=== PATIENT | male | born 1950 | race Caucasian/White ===

== ENCOUNTER 2020-07-20 10:15 | Inpatient (IN) | payer MEDICARE, SELFPAY ==
[2020-07-20] VITALS (22 sets, daily range): BP systolic 130–154; BP diastolic 60–69; PULSE 76–90; RESP 14–40; TEMP 37.3–39.6; O2SAT 90–98; BMI 30.8; BMI 31.1
--- NOTE | 2020-07-20 10:25 | DI.RAD.S_ITS ---
PROCEDURE: XR CHEST 1V INDICATIONS: flu-like symptoms TECHNIQUE: One view of the chest was acquired. COMPARISON: None. FINDINGS: Surgical changes and devices: None. Lungs and pleura: An incomplete inspiratory result is noted, causing a crowded appearance to the lung markings. No focal infiltrates are seen. Generalized interstitial prominence is seen No pneumothorax or significant pleural effusions are seen. Mediastinum: Mediastinal contours appear normal. Heart size is moderately enlarged. Bones and chest wall: No suspicious bony lesions. Age-appropriate bony degenerative changes are seen. Overlying soft tissues appear unremarkable. IMPRESSION: Cardiomegaly and interstitial prominence. Please correlate with patient presentation, physical examination findings, and laboratory values for congestive heart failure. No focal infiltrates are detected. If clinically appropriate, a short-term followup chest series (with PA and lateral views) performed in deep inspiration is suggested for further evaluation. Dictated by: Rodrigo Acosta M.D. on 07/20/2020 at 10:06 Approved by: Rodrigo Acosta M.D. on 07/20/2020 at 10:07
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
[2020-07-20] MEDS: SODIUM CHLORIDE 0.9% 1,000 ML 125 ML IV (10:33)
[2020-07-20] MEDS: ACETAMINOPHEN 325 MG TABLET 975 MG PO (10:34)
[2020-07-20 10:43] LABS: Add Manual Diff / Slide Review NO; Basophils Absolute Auto 0 /uL (0-100); Basophils Percent Auto 0.2 % (0-2); Eosinophils Absolute Auto 0 /uL (0-450); Hematocrit 42.2 % (41-53); Hemoglobin 14.7 g/dL (13.5-17.5); Lymphocytes Absolute Auto 1400 /uL (1100-4500); Lymphocytes Percent Auto 8.8 % (25-40); Mean Corpuscular HGB Conc 34.9 % (30-36); Mean Corpuscular Hemoglobin 30.7 PG (26-34); Mean Corpuscular Volume 87.9 fL (80-100); Monocytes Absolute Auto 2700 /uL (0-900); Monocytes Percent Auto 16.8 % (3-14); Neutrophils Absolute Auto 11900 /uL (1500-7000); Neutrophils Percent Auto 74.2 % (50-75); Platelet Count 208 X10^3/uL (150-400); Red Cell Distribution Width 13.5 % (11.6-14.8); White Blood Cell Count 16.1 X10^3/uL (4.5-11.0)
[2020-07-20 11:02] LABS: D Dimer 315 ng/mL (<230)
[2020-07-20 11:05] LABS: COVID19 -Nasal RAPID Negative (Negative)
[2020-07-20 11:06] LABS: Lactate (Lactic Acid) 3.2 mmol/L (0.7-2.1)
--- NOTE | 2020-07-20 11:06 | PC.NURSE ---
patient daughter called, Gilda [phone], to give some info, they are still on a boat and trying to get to [facility] to drive in. Patient has been complaining of a headache for a week, on friday he got wet in the rain and had shivers that night, patient hasn't eaten much, blood glucose has been elevated in the 200's, patient this am was found on the floor of they boat and seemed very confused.
[2020-07-20 11:07] LABS: Alanine Aminotransferase 79 IU/L (<50); Albumin 3.8 g/dL (3.5-5.0); Albumin Globulin Ratio 1.7 (1.0-2.8); Alkaline Phosphatase 62 U/L (38-126); Aspartate Aminotransferase 161 IU/L (17-59); BUN Creatinine Ratio 29.9 (6-22); Bilirubin Total 1.2 mg/dL (0.2-1.3); Blood Urea Nitrogen 26 mg/dL (9-20); C-Reactive Protein Quant 0.7 mg/dL (<1.0); Carbon Dioxide 27 mmol/L (22-32); Chloride 91 mmol/L (98-107); Estimated Glomerular Filt Rate > 60.0 mL/min (>60); Globulin 2.3 g/dL (1.7-4.1); Glucose 120 mg/dL (80-110); Lactate Dehydrogenase 872 U/L (313-618); Potassium 3.3 mmol/L (3.4-5.1); Sodium 126 mmol/L (137-145); Total Protein 6.1 g/dL (6.3-8.2)
[2020-07-20 11:08] LABS: Influenza A - CEPHEID Flu A NEGATIVE (NEGATIVE); Influenza B - CEPHEID Flu B NEGATIVE (NEGATIVE)
[2020-07-20 11:18] LABS: NT-proBNP (BNP-Adult 18+) 428 pg/mL (<125); Troponin I 0.035 ng/mL (0.01-0.034)
[2020-07-20 11:34] LABS: Lipase 611 U/L (23-300)
[2020-07-20 11:41] LABS: Ferritin 426 ng/mL (18-464)
[2020-07-20 11:42] LABS: Procalcitonin < 0.05 ng/mL (<0.5)
[2020-07-20 11:48] LABS: Creatine Kinase 6823 U/L (55-170)
--- NOTE | 2020-07-20 12:06 | DI.CT.S_ITS ---
PROCEDURE: CT ABDOMEN PELVIS W CON INDICATIONS: fever weakness, no source TECHNIQUE: After the administration of intravenous contrast, 5 mm thick sections acquired from the diaphragm to the symphysis. 5 mm coronal and sagittal reformats were acquired. For radiation dose reduction, the following was used: automated exposure control, adjustment of mA and/or kV according to patient size. COMPARISON: None. FINDINGS: Image quality: Excellent. ABDOMEN: Lung bases: Dependent atelectasis is seen in the lung bases bilaterally. Heart size is normal. Solid organs: There is diffuse fatty infiltration the liver. Gallbladder is surgically absent. Biliary system is non dilated. Pancreas enhances normally. Spleen is normal in size and enhancement. No adrenal nodules. Multiple non-obstructing calculi are seen in the left kidney measuring 4-6 mm. An 8 mm nonobstructing calculus is seen inferior pole of the right kidney. There is no hydronephrosis. Peritoneum and bowel: Bowel loops demonstrate normal wall thickness and caliber. Normal appendix. No free fluid or air. Nodes and vessels: No retroperitoneal or mesenteric adenopathy by size criteria. Aorta and inferior vena cava are normal in size. Miscellaneous: No ventral hernias. PELVIS: Genitourinary: Multiple 4-5 mm calculi are seen in the dependent portion of the bladder. The prostate is enlarged. Miscellaneous: No inguinal hernias or adenopathy. Bones: No suspicious bony lesions. No vertebral body compression fractures. Mild degenerative changes are seen in the spine. IMPRESSION: 1. Multiple nonobstructing calculi are seen in both kidneys. There is no hydronephrosis. Additional calculi are seen in the dependent portion of the bladder. 2. Moderate prostatomegaly. 3. Diffuse hepatic steatosis. Dictated by: Yvon Delgado M.D. on 07/20/2020 at 12:17 Approved by: Yvon Delgado M.D. on 07/20/2020 at 12:24
[2020-07-20 12:09] LABS: CKMB % Relative Index 0.6 % (1.5-5.0); HEMOLYSIS 26 (0-50)
[2020-07-20 12:38] LABS: Reflexed Lactate in 2 Hours Y
[2020-07-20 14:00] LABS: Appearance Urine UA CLEAR; Bilirubin Urine UA NEGATIVE (NEGATIVE); Color Urine UA YELLOW; Glucose Urine UA NEGATIVE (Negative); Ketones Urine UA NEGATIVE (NEGATIVE); Leukocyte Esterase Urine UA NEGATIVE (NEGATIVE); Nitrite Urine UA NEGATIVE (Negative); Occult Blood Urine UA 3+ (Negative); Protein Urine UA 1+ (Negative); Urobilinogen Urine UA 0.2 E.U./dL (0.2); pH Urine UA 6.5 (4.5-8.0)
[2020-07-20 14:11] LABS: Bacteria Urine Few (2-10); Culture Indicated Urine Cult Not Indicated; RBC Urine 1-5/HPF (0-5/HPF); WBC Urine 0-1/HPF (0-5/HPF)
[2020-07-20] MEDS: KETOROLAC 60 MG/2 ML VIAL 15 MG IV (14:36)
[2020-07-20] MEDS: PIPERACILLIN-TAZO 3.375 GM/50 ML FROZ.PIGGY IV (14:37)
[2020-07-20 15:16] LABS: Lactate 2HR (Lactic Acid Rflx) 1.3 mmol/L (0.7-2.1)
[2020-07-20] MEDS: CEFTRIAXONE 2 GM/50 ML FROZ.PIGGY IV (15:45)
--- NOTE | 2020-07-20 15:45 | PC.NURSE ---
Pt was incontinent of bladder. Assisted with complete bed change. Pt is now in bed with rails up and a clean gown. Elevated HOB and call light within reach. No complaints at this time.
--- NOTE | 2020-07-20 16:08 | DI.RAD.S_ITS ---
PROCEDURE: FL GUIDED LUMBAR PUNCTURE LP INDICATIONS: fever headache COMPARISON: None. TECHNIQUE: The indications, alternatives, benefits, risks, and complications were explained to the patient. Written informed consent was obtained and placed in the chart. The patient was placed in a prone position on the fluoroscopy table, and a level was chosen for percutaneous access under fluoroscopic guidance. The site was prepped and draped in a sterile fashion. After local anaesthetic, a spinal needle was then used to enter the intrathecal space, with return of cerebrospinal fluid. After obtaining sufficient fluid, the needle was then withdrawn, and a bandage applied to the puncture site. FINDINGS: Puncture level: L3-L4 Needle: Spinal needle. Opening pressure: Not requested. CSF volume and description: 14 cc of clear CSF Medications: 1% lidocaine for anaesthesia. Complications: None. Laboratories: As ordered by referring clinician. IMPRESSION: Successful fluoroscopically guided lumbar puncture. Dictated by: Lopez Sofia M.D. on 07/20/2020 at 17:59 Approved by: Lopez Sofia M.D. on 07/20/2020 at 18:00
--- NOTE | 2020-07-20 17:48 | PC.NURSE ---
Pt to room 220 from E.R. via stretcher. Rouses to voice, but very somnulent. Periods of apnea with sleep and when awoken does admit to h/o of sleep apnea with cpap use. 02 3L nc saturation level 94% with sleep. Has glasses in possession. Tele placed and [employer]CR[employer]ISHER, Grace, informed. SCD's in place. Awaiting pt's spouse to arrive to address pt's medical history and admission assessment.
[2020-07-20 18:16] LABS: Glucose CSF 43 mg/dL (40-70); Total Protein CSF 76 mg/dL (12-60)
[2020-07-20 18:35] LABS: Appearance CSF Clear (Clear); CSF Tube Number 2; CSF Tube Volume 2.5 mL; Color CSF Colorless (Colorless); HOLD TUBE CSF YES; Mononuclear WBC CSF 90 %; Polynuclear WBC CSF 10 %; Red Blood Cell CSF 0 RBC /uL; White Blood Cell CSF 216 MONO/uL (0-5)
[2020-07-20 18:36] LABS: Appearance CSF Clear (Clear); CSF Tube Number 4; CSF Tube Volume 5.0 mL
[2020-07-20 18:37] LABS: Color CSF Colorless (Colorless); Mononuclear WBC CSF 92 %; Polynuclear WBC CSF 8 %; Red Blood Cell CSF 0 RBC /uL; White Blood Cell CSF 225 MONO/uL (0-5)
[2020-07-20 18:50] LABS: Hemoglobin A1C% w Est Avg Glu 7.1 % (4.0-6.0)
[2020-07-20 18:52] LABS: TSH w/ Reflex to FT4 0.07 uIU/mL (0.47-4.68)
[2020-07-20] MEDS: VANCOMYCIN 1,500 MG/300 ML FROZ.PIGGY 200 MG IV (19:02)
[2020-07-20 19:23] LABS: Free T4, Direct Thyroxine 1.37 ng/dL (0.78-2.19)
--- NOTE | 2020-07-20 20:03 | PC.NURSE ---
Addendum entered by Taylor Hodge R.N. 07/21/20 03:47: 0305 per , okay to let pt sleep until 299 for neuro check. pt able to state name, birthday, and town but thinks its 2015 and doesn't know rational for hospitalization. pt not assisting with repositioning. does move extremities freely and to command. strengths equal. denies pain. VSS. CBG <80, clear glucerna given and pt able to drink entire thing without difficulty. CPAP back on after assessment. Addendum entered by Taylor Hodge R.N. 07/21/20 01:21: 2200 neuro check oriented to all, looks to opposite side (this RN on pt's left side, pt looks to right) when answering questions. when this RN asks pt to look at her he turns his head to the appropriate direction. Pt has CPAP on and has hands grasped tightly around cording. 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 0000 neuro check pt seems tired, eyes are red and pt's reported pt has not slept since 299. Arouses easily but doesn't respond as much verbally. repositioned to right side and was able to bend knee up with turning but otherwise did not assist with positional change. Pt denies any differences in sensation between bilateral arms/legs. Encouraged pt to sleep. CBG improved, temp elevated and IBU given (reference EMAR) pt able to swallow pill/water without difficulty. Original Note: neuor check 1999 pt alert and oriented to self, place, setting, situation, date. pt restless and picks at IV site and continue to try to get OOB to void even though has patent burger in place. Pt's Itzel at bedside and attempts to reorient pt to equipment and pt is agreeable and than fidgety again. Able to move all extremities freely but does not have the strength to sit up independent. Is able to follow commands. Verbal responses continue to be delayed sometimes requiring to repeat the question.
--- NOTE | 2020-07-20 20:47 | PM.HP.1 ---
History of Present Illness History of Present Illness Date Patient Seen: 07/20/20 Time Patient Seen: 20:21 Chief complaint: Decreased loc 3 days,fever,no cough Narrative: Mr. Ottoniel Lewis is a 70-year-old male patient with a past medical history significant for insulin-dependent diabetes with neuropathy, hypertension, history of kidney stones and BPH presents to the ER with altered mental status, headache and fever. 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 The patient's symptoms began 1 week ago after being caught and rain storm for several hours after which the patient began experiencing shaking chills. The patient complained of headache and is otherwise typically stoic. He has had associated symptoms of increasing confusion which is describes activities like scrolling a cell phone screen but without a cell. Patient has had associated symptoms of body aches weakness, feeling tired having slept most of the day yesterday. Patient is diabetic and has had poor appetite and has been taking to see above but did not receive his dose today having had a low blood sugar in the 60s that was treated with oral nutrition. Patient has had no prior headaches or neurologic symptoms or seizures, no history trauma or injury, no complaints photo or phonophobia. He has not complained of neck or back pain but has had nausea without vomiting denies complaints of sinus or nasal congestion or sore throat. He has not complained of chest pain or palpitations, shortness of breath cough or wheezing. Denies complaints of abdominal pain, heartburn, diarrhea or constipation. He takes Ex[employer] health for enlarged prostate and denies difficulty urinating. Upon arrival to the ER the patient has a temperature 103.3, heart rate of 85, blood pressure 137/63, respirations 22 saturating 95% on room air. A CT of the head is obtained which finds no intercranial pathology. A chest x-rays obtained finding cardiomyopathy with interstitial prominence. CT of the abdomen and pelvis finds hepatic steatosis, nonobstructing calculi of both kidneys without hydronephrosis, prostatomegaly. Twelve lead EKG is obtained finding a sinus rhythm with ventricular rate of 86, first-degree AV block with right bundle branch block, Q-waves in lead 2 and AVF indicative prior inferior DC, On laboratory analysis the patient has an elevated white blood cell count at 16.1 with 2700 monocytes, 8.8% lymphs and 11,900 neutrophils, hemoglobin of 14.7, hematocrit 42.2 and platelets 208. He is found to be hyponatremic 126 and hypokalemic at 3.3. His BUN is 26 and creatinine 0.87. His nonfasting glucose is 120 with an A1c 7.1.. His total bilirubin is 1.2 with an AST of 161 and ALT is 79. His lipase is 60 11 and LDH is 872. He has a D-dimer of 215. His initial lactic acid is 3.2 following fluids he has improved to 1.3. His procalcitonin is less than 0.05. His troponin is 0.035, total CK is 6823 with an MB of 38.3 for an index of 0.6, BNP is 428. TSH is 0.07 with free T4 of 1.37. An LP is obtained through interventional radiology: Opening pressures not provided, CSF is clear and colorless, wbc's are 216 with monos 90% and 10% polys, glucose is normal at 43 and total protein is elevated at 76. 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 In the ER the patient received Zosyn 3.375 g and Rocephin 2 g. Has received Tylenol 975 mg well as Toradol 15 mg. Sepsis bolus was ordered then canceled. The patient is admitted to the hospitalist service for altered mental status and possible bacterial meningitis. Patient History Medical History BPH (benign prostatic hyperplasia) (Acute) Diabetes (Acute) Hypertension (Acute) Neuropathy (Acute) Surgical History History of Achilles tendon repair (Acute) History of cholecystectomy (Acute) History of lithotripsy (Acute) Family & Social History Family History Father Cancer Mother Diabetes mellitus Kidney disease Sister Diabetes mellitus Social History: household members spouse Prior Living Arrangements House Safety & Behavioral: Feels Safe in Current Yes Environment Been Physically Hurt or No Threatened By a Person Suicidal Ideation Description None Suicide Plan Description No Plan Tobacco & Substance use: Smoking Status Never smoker alcohol intake former Substance Use Type does not use Comment: Patient lives in [facility], in the [facility] visiting staying on a boat. Meds Home Medications and Allergies Home Medications Medication Instructions Recorded Confirmed Type glimepiride 2 mg PO QAM 07/20/20 07/20/20 History glimepiride 4 mg PO BEDTIME 07/20/20 07/20/20 History insulin degludec [Tresiba 90 unit SUBCUT BEDTIME 07/20/20 07/20/20 History FlexTouch U-200] levothyroxine 137 mcg PO DAILY 07/20/20 07/20/20 History losartan 50 mg PO BID 07/20/20 07/20/20 History Allergies Allergy/AdvReac Type Severity Reaction Status Date / Time ciprofloxacin Allergy Verified 07/20/20 11:08 Review of Systems Review of Systems ROS: Yes All systems reviewed with the patient and are negative except as otherwise documented Exam Vital Signs (past 8 hours): - 07/20/20 12:58 07/20/20 13:00 07/20/20 13:30 Temperature 101.3 F H Pulse Rate 77 Respiratory Rate 18 Blood Pressure 145/66 H 130/60 Pulse Oximetry 97 07/20/20 14:00 07/20/20 14:30 07/20/20 15:00 Temperature Pulse Rate 82 80 Respiratory Rate 18 24 Blood Pressure 136/62 147/67 H 143/63 H Pulse Oximetry 94 92 07/20/20 15:30 07/20/20 15:40 07/20/20 17:25 Temperature 100.2 F H 99.2 F Pulse Rate 82 76 Respiratory Rate 34 H 18 Blood Pressure 136/66 Pulse Oximetry 95 90 L Oxygen Delivery Method Nasal Cannula,High Flow Nasal Cannula Oxygen Flow Rate 0 Narrative Exam Narrative: GENERAL APPEARANCE: well developed, obese male with ill-appearing HEENT: Normocephalic, PERRLA, conjunctiva injection, EOMs intact with bilateral slow beat nystagmus, no sinus tenderness to percussion, no rhinorrhea, mucous membranes are dry and pink without lesions or exudate. NECK/THYROID: neck supple, no JVD, no carotid bruit, no thyromegaly, trachea midline. LYMPH NODES: no cervical or supraclavicular lymphadenopathy. SKIN: flushed, warm and dry, no visible lesions, rashes, ulcerations or petechiae. HEART: regular rate and rhythm, S1-S2, no murmur, no rubs or gallops, brisk capillary refill, no edema LUNGS: clear to auscultation bilaterally, no coarseness crackles or wheezing, no cough present CHEST: Symmetrical movement, no accessory muscle use, shallow tidal volume. ABDOMEN: Firm, round, dull to percussion, no abdominal tenderness, no guarding or peritoneal signs, no organomegaly, no flank or suprapubic tenderness, active bowel tones. BACK: Normal curvature, nontender to palpation, no CVA tenderness on percussion EXTREMITIES: moves all extremities, strength is 5/5 and symmetrical, no deformities or joint effusions. NEUROLOGIC: Alert oriented to person, place, month and recent holiday but states that is 2011, no facial asymmetry symmetrical movement, akathisia like movements of hands, decreased sensation distal to the knees, hearing grossly normal to speech. PSYCH: Poor eye contact, primary left gaze, global inattention impaired short-term memory, follows commands. Objective Labs Result Diagrams: 07/20/20 10:30 07/20/20 10:30 Labs: Laboratory Results - last 24 hr 07/20/20 07/20/20 07/20/20 10:30 10:30 10:30 WBC 16.1 H RBC 4.80 Hgb 14.7 Hct 42.2 MCV 87.9 MCH 30.7 MCHC 34.9 RDW 13.5 Plt Count 208 Neut % (Auto) 74.2 Lymph % (Auto) 8.8 L [place] % (Auto) 16.8 H Eos % (Auto) 0.0 L Baso % (Auto) 0.2 Neut # (Auto) 42401 H Lymph # (Auto) 1400 [place] # (Auto) 2700 H Eos # (Auto) 0 Baso # (Auto) 0 D-Dimer 315 H Sodium Potassium Chloride Carbon Dioxide BUN Creatinine Estimated GFR BUN/Creatinine Ratio Glucose Hemoglobin A1c Lactate Calcium Magnesium Ferritin Total Bilirubin AST ALT Alkaline Phosphatase Lactate Dehydrogenase Total Creatine Kinase CK-MB (CK-2) CK-MB (CK-2) Rel Index Troponin I C-Reactive Protein NT-Pro-B Natriuret Pep Total Protein Albumin Globulin Albumin/Globulin Ratio Lipase Procalcitonin < 0.05 TSH Free T4 Urine Color Urine Appearance Urine pH Ur Specific [place] Urine Protein Urine Glucose (UA) Urine Ketones Urine Occult Blood Urine Nitrate Urine Bilirubin Urine Urobilinogen Ur Leukocyte Esterase Urine RBC Urine WBC Urine Bacteria Ur Culture Indicated? CSF Tube Number CSF Volume CSF Appearance CSF Color CSF WBC CSF RBC CSF Mononuclear WBCs CSF Polynuclear WBCs CSF Glucose CSF Total Protein COVID-19 PCR Influenza A (RT-PCR) Influenza B (RT-PCR) 07/20/20 07/20/20 07/20/20 10:30 10:30 10:30 WBC RBC Hgb Hct MCV MCH MCHC RDW Plt Count Neut % (Auto) Lymph % (Auto) [place] % (Auto) Eos % (Auto) Baso % (Auto) Neut # (Auto) Lymph # (Auto) [place] # (Auto) Eos # (Auto) Baso # (Auto) D-Dimer Sodium 126 L Potassium 3.3 L Chloride 91 L Carbon Dioxide 27 BUN 26 H Creatinine 0.87 Estimated GFR > 60.0 BUN/Creatinine Ratio 29.9 H Glucose 120 H Hemoglobin A1c Lactate 3.2 H Calcium 8.0 L Magnesium Ferritin 426 Total Bilirubin 1.2 AST 161 H ALT 79 H Alkaline Phosphatase 62 Lactate Dehydrogenase 872 H Total Creatine Kinase 6823 H CK-MB (CK-2) 38.30 H CK-MB (CK-2) Rel Index 0.6 L Troponin I 0.035 H C-Reactive Protein 0.7 NT-Pro-B Natriuret Pep 428 H Total Protein 6.1 L Albumin 3.8 Globulin 2.3 Albumin/Globulin Ratio 1.7 Lipase 611 H Procalcitonin TSH Free T4 Urine Color Urine Appearance Urine pH Ur Specific [place] Urine Protein Urine Glucose (UA) Urine Ketones Urine Occult Blood Urine Nitrate Urine Bilirubin Urine Urobilinogen Ur Leukocyte Esterase Urine RBC Urine WBC Urine Bacteria Ur Culture Indicated? CSF Tube Number CSF Volume CSF Appearance CSF Color CSF WBC CSF RBC CSF Mononuclear WBCs CSF Polynuclear WBCs CSF Glucose CSF Total Protein COVID-19 PCR Influenza A (RT-PCR) Influenza B (RT-PCR) 07/20/20 07/20/20 07/20/20 10:30 10:30 10:30 WBC RBC Hgb Hct MCV MCH MCHC RDW Plt Count Neut % (Auto) Lymph % (Auto) [place] % (Auto) Eos % (Auto) Baso % (Auto) Neut # (Auto) Lymph # (Auto) [place] # (Auto) Eos # (Auto) Baso # (Auto) D-Dimer Sodium Potassium Chloride Carbon Dioxide BUN Creatinine Estimated GFR BUN/Creatinine Ratio Glucose Hemoglobin A1c 7.1 H Lactate Calcium Magnesium 2.0 Ferritin Total Bilirubin AST ALT Alkaline Phosphatase Lactate Dehydrogenase Total Creatine Kinase CK-MB (CK-2) CK-MB (CK-2) Rel Index Troponin I C-Reactive Protein NT-Pro-B Natriuret Pep Total Protein Albumin Globulin Albumin/Globulin Ratio Lipase Procalcitonin TSH 0.07 L Free T4 1.37 Urine Color Urine Appearance Urine pH Ur Specific [place] Urine Protein Urine Glucose (UA) Urine Ketones Urine Occult Blood Urine Nitrate Urine Bilirubin Urine Urobilinogen Ur Leukocyte Esterase Urine RBC Urine WBC Urine Bacteria Ur Culture Indicated? CSF Tube Number CSF Volume CSF Appearance CSF Color CSF WBC CSF RBC CSF Mononuclear WBCs CSF Polynuclear WBCs CSF Glucose CSF Total Protein COVID-19 PCR Influenza A (RT-PCR) Influenza B (RT-PCR) 07/20/20 07/20/20 07/20/20 10:40 10:40 13:20 WBC RBC Hgb Hct MCV MCH MCHC RDW Plt Count Neut % (Auto) Lymph % (Auto) [place] % (Auto) Eos % (Auto) Baso % (Auto) Neut # (Auto) Lymph # (Auto) [place] # (Auto) Eos # (Auto) Baso # (Auto) D-Dimer Sodium Potassium Chloride Carbon Dioxide BUN Creatinine Estimated GFR BUN/Creatinine Ratio Glucose Hemoglobin A1c Lactate Calcium Magnesium Ferritin Total Bilirubin AST ALT Alkaline Phosphatase Lactate Dehydrogenase Total Creatine Kinase CK-MB (CK-2) CK-MB (CK-2) Rel Index Troponin I C-Reactive Protein NT-Pro-B Natriuret Pep Total Protein Albumin Globulin Albumin/Globulin Ratio Lipase Procalcitonin TSH Free T4 Urine Color Yellow Urine Appearance Clear Urine pH 6.5 Ur Specific [place] 1.010 Urine Protein 1+ H Urine Glucose (UA) Negative Urine Ketones Negative Urine Occult Blood 3+ H Urine Nitrate Negative Urine Bilirubin Negative Urine Urobilinogen 0.2 Ur Leukocyte Esterase Negative Urine RBC 1-5/hpf Urine WBC 0-1/hpf Urine Bacteria Few (2-10) H Ur Culture Indicated? Cult not indicated CSF Tube Number CSF Volume CSF Appearance CSF Color CSF WBC CSF RBC CSF Mononuclear WBCs CSF Polynuclear WBCs CSF Glucose CSF Total Protein COVID-19 PCR Negative Influenza A (RT-PCR) Flu a negative Influenza B (RT-PCR) Flu b negative 07/20/20 07/20/20 07/20/20 15:00 16:01 17:37 WBC RBC Hgb Hct MCV MCH MCHC RDW Plt Count Neut % (Auto) Lymph % (Auto) [place] % (Auto) Eos % (Auto) Baso % (Auto) Neut # (Auto) Lymph # (Auto) [place] # (Auto) Eos # (Auto) Baso # (Auto) D-Dimer Sodium Potassium Chloride Carbon Dioxide BUN Creatinine Estimated GFR BUN/Creatinine Ratio Glucose Hemoglobin A1c Lactate 1.3 Calcium Magnesium Ferritin Total Bilirubin AST ALT Alkaline Phosphatase Lactate Dehydrogenase Total Creatine Kinase CK-MB (CK-2) CK-MB (CK-2) Rel Index Troponin I C-Reactive Protein NT-Pro-B Natriuret Pep Total Protein Albumin Globulin Albumin/Globulin Ratio Lipase Procalcitonin TSH Free T4 Urine Color Urine Appearance Urine pH Ur Specific [place] Urine Protein Urine Glucose (UA) Urine Ketones Urine Occult Blood Urine Nitrate Urine Bilirubin Urine Urobilinogen Ur Leukocyte Esterase Urine RBC Urine WBC Urine Bacteria Ur Culture Indicated? CSF Tube Number 4 CSF Volume 5.0 ml CSF Appearance Clear CSF Color Colorless CSF WBC 225 H CSF RBC 0 CSF Mononuclear WBCs 92 CSF Polynuclear WBCs 8 CSF Glucose 43 CSF Total Protein 76 H COVID-19 PCR Influenza A (RT-PCR) Influenza B (RT-PCR) 07/20/20 17:37 WBC RBC Hgb Hct MCV MCH MCHC RDW Plt Count Neut % (Auto) Lymph % (Auto) [place] % (Auto) Eos % (Auto) Baso % (Auto) Neut # (Auto) Lymph # (Auto) [place] # (Auto) Eos # (Auto) Baso # (Auto) D-Dimer Sodium Potassium Chloride Carbon Dioxide BUN Creatinine Estimated GFR BUN/Creatinine Ratio Glucose Hemoglobin A1c Lactate Calcium Magnesium Ferritin Total Bilirubin AST ALT Alkaline Phosphatase Lactate Dehydrogenase Total Creatine Kinase CK-MB (CK-2) CK-MB (CK-2) Rel Index Troponin I C-Reactive Protein NT-Pro-B Natriuret Pep Total Protein Albumin Globulin Albumin/Globulin Ratio Lipase Procalcitonin TSH Free T4 Urine Color Urine Appearance Urine pH Ur Specific [place] Urine Protein Urine Glucose (UA) Urine Ketones Urine Occult Blood Urine Nitrate Urine Bilirubin Urine Urobilinogen Ur Leukocyte Esterase Urine RBC Urine WBC Urine Bacteria Ur Culture Indicated? CSF Tube Number 2 CSF Volume 2.5 ml CSF Appearance Clear CSF Color Colorless CSF WBC 216 H CSF RBC 0 CSF Mononuclear WBCs 90 CSF Polynuclear WBCs 10 CSF Glucose CSF Total Protein COVID-19 PCR Influenza A (RT-PCR) Influenza B (RT-PCR) Assessment & Plan Assessment & Plan narrative: This is a 70-year-old male patient with a history of diabetes, hypertension and BPH who has had progressive altered mental status with headache for 1 week with progressive body aches weakness and chills, fatigue with poor appetite. 1. Altered mental status, probable meningitis, acute, present on admission, active. -the patient has had progressive symptoms of headache, increasing fevers and confusion, intermittent chills, nausea without vomiting, weakness fatigue and poor appetite. -source of altered mental status likely multifactorial, most prominently acute meningitis, hyponatremia but also ruling out other infectious processes. -patient has an elevated today PVCs at 16.1 with increased monocytes, decreased lymphs. Procalcitonin is negative at less than 0.05, elevated D-dimer at 315, elevated LDH at 800 72, ferritin is normal at 426. -CT the head is negative for acute intracranial pathology, chest x-ray identifies interstitial prominence but no infiltrates, urinalysis appears non infected, covert screen is negative. -lumbar punctures obtained with findings of clear colorless CSF with elevated white blood cells with 216 mononuclear (90%) and polynuclear (10%), elevated protein at 76, normal glucose of 43, most consistent with viral etiology, CSF PCR pending. -ordered repeat covered screening as well as respiratory PCR. -patient receives Zosyn 3.375 g in the ER which is discontinued, will continue Rocephin 2 g daily started in the ER. Will add vancomycin per pharmacy dosing pending PCR culture results. 2. Borderline troponin with elevated creatinine kinase, present on admission, active. --patient did take a fall on the boat which was heard by the patient's and patient was found on the cabin floor. -no prolonged down time with patient is found to have an elevated CK of 6823, CK-MB 38.3, index is 0.6%. -troponin is borderline at 0.035 in the setting of normal renal function. Chest x-ray of poor quality shows cardiomegaly with interstitial prominence, pro BNP is 428. -patient received IV fluid bolus in the emergency department, will continue normal saline at 100 cc/hour. -will recheck cardiac panel in the morning. 3. Hypokalemia, acute, present on admission, active. -admission labs find a potassium of 3.3. No evidence of acidosis. -ordered KCl rider 40 mEq now. -will recheck electrolytes in the morning. 4. Hyponatremia, acute, present on admission, active. -patient has sodium of 126 on admission labs. -the patient appears dehydrated has been cautiously rehydrated with normal saline 100 cc/hour due to questionable cardiac status. -or evaluates electrolytes in the morning. 5. Diabetes, insulin dependent, present on admission, active. -the patient takes Tresiba 90 units daily at night. His glucose on admission labs is 120. His A1c is 7.1. -patient experienced hypo glycemic episode yesterday with blood glucose down to the 60s for which is treated with oral nutrients on board the boat. -will hold Tresiba tonight, fingerstick glucose ACHS and at midnight, coverage with medium dose correctional insulin. -constant carbohydrate diet. 6. Hypertension, chronic, stable -blood pressure is 137/63 upon arrival. -will continue home medication of losartan 50 mg daily. 7. Benign prostatic hypertrophy, chronic, stable. -patient takes beta health for his prostate. He denies difficulty urinating though he has previously required catheter placement for obstruction. -patient was straight cath in the emergency department for urine sample required for workup. -urinalysis finds a specific gravity of 1.010 with a pH of 6.5, positive for protein blood and few bacteria negative for leukocyte esterase or nitrates. Urine culture is requested. -Patient became restless attempting to get out of bed due to need to void, bladder scan reveals 450 cc, Foote catheter placed. -ordered tamsulosin. VTE prophylaxis: Bilateral SCDs, heparin IV fluid: Normal saline 100 cc/hour. Diet: Constant carbohydrate heart healthy Code status: Patient states his desire to be DNR which is confirmed with the patient's at bedside whom he designates to be his surrogate decision maker. The patient is admitted to the hospital due to the severity of symptoms and need for ongoing evaluation and treatment. The patient is admitted as an inpatient with expected length of stay to be greater than 2 midnights. COVID-19 COVID-19 status: Negative Result date/Date tested (Pos, Neg/Pending): 07/20/20 Scores GCS Brodie coma scale eye opening: Spontaneous Brodie coma scale verbal response: Confused [place] coma scale motor response: Obey commands Brodie coma scale total score: 14 Quality VTE Deep Vein Thrombosis/Pulmonary Embolism Present on Admission: No
[2020-07-20] MEDS: ACYCLOVIR IV (20:51)
[2020-07-20] MEDS: WATER IV (20:51)
[2020-07-20] MEDS: DEXTROSE 5% IV (20:51)
[2020-07-20] MEDS: HEPARIN 5,000 UNIT/ML VIAL 5000 UNIT SUBCUT (20:56)
[2020-07-20] MEDS: ACETAMINOPHEN 325 MG TABLET 650 MG PO (21:05)
[2020-07-20 22:35] LABS: Cryptococcus neoformans/gattii Not Detected (Not Detect); Enterovirus Not Detected (Not Detect); Escherichia coli K1 Not Detected (Not Detect); Haemophilus influenzae Not Detected (Not Detect); Herpes simplex virus 1 Detected (Not Detect); Herpes simplex virus 2 Not Detected (Not Detect); Human herpesvirus 6 Not Detected (Not Detect); Listeria monocytogenes Not Detected (Not Detect); Neisseria meningitidis Not Detected (Not Detect); Streptococcus agalactiae Not Detected (Not Detect); Streptococcus pneumoniae Not Detected (Not Detect); Varicella Zoster Virus Not Detected (Not Detecte)
[2020-07-20 22:36] LABS: Human parechovirus Not Detected (Not Detect)
[2020-07-21] VITALS (25 sets, daily range): BP systolic 129–157; BP diastolic 68–87; PULSE 89–103; RESP 31–41; TEMP 36.4–39.6; O2SAT 94–97
[2020-07-21] MEDS: IBUPROFEN 600 MG TABLET PO (00:12)
[2020-07-21] MEDS: SODIUM CHLORIDE 0.9% 1,000 ML 100 ML IV ×2 (00:13→08:10)
[2020-07-21 00:34] LABS: COVID19 -Nasal RAPID Negative (Negative)
[2020-07-21 00:35] LABS: Bordetella pertussis Not Detected (Not Detect); Chlamydophila pneumoniae Not Detected (Not Detect); Coronavirus 229E Not Detected (Not Detect); Coronavirus HKU1 Not Detected (Not Detect); Coronavirus NL 63 Not Detected (Not Detect); Coronavirus OC43 Not Detected (Not Detect); Human Metapneumovirus Not Detected (Not Detect); Human Rhinovirus/Enterovirus Not Detected (Not Detect); Influenza A Not Detected (Not Detect); Influenza B Not Detected (Not Detect); Mycoplasma pneumoniae Not Detected (Not Detect); Parainfluenza Virus 1 Not Detected (Not Detect); Parainfluenza Virus 2 Not Detected (Not Detect); Parainfluenza Virus 3 Not Detected (Not Detect); Parainfluenza Virus 4 Not Detected (Not Detect); Respiratory Syncytial Virus Not Detected (Not Detect)
[2020-07-21 00:37] LABS: Adenovirus Not Detected (Not Detect)
[2020-07-21] MEDS: POTASSIUM CHLORIDE 40 MEQ in SODIUM CHLORIDE 0.9% 500 ML 130 ML IV (00:50)
[2020-07-21] MEDS: WATER IV ×3 (03:56→20:14)
[2020-07-21] MEDS: ACYCLOVIR IV ×3 (03:56→20:14)
[2020-07-21] MEDS: DEXTROSE 5% IV ×3 (03:56→20:14)
--- NOTE | 2020-07-21 04:18 | PC.NURSE ---
0300 assumed care of patient. Patient is resting in bed with eyes closed, breathing unlabored, CPAP on, 96%. Patient is arousable to voice and touch, oriented to self, in response to place patient said [place], speech is clear but slow. Patient becomes restless intermittently, picks at linen and tubing. IV infusing L wrist [id number]. IV R AC infusing Acyclovir @ 100ml/hr. Patient tolerating. Foote is below bladder, patent, draining clear, orange urine. Tele on. Patient's glasses are on tray table, SCD's on bilaterally, bed alarm on, droplet precautions maintained.
[2020-07-21] MEDS: CEFTRIAXONE 2 GM/50 ML FROZ.PIGGY IV (05:15)
[2020-07-21 05:31] LABS: Add Manual Diff / Slide Review NO; Basophils Absolute Auto 100 /uL (0-100); Basophils Percent Auto 0.8 % (0-2); Eosinophils Absolute Auto 0 /uL (0-450); Eosinophils Percent Auto 0.3 % (2-4); Hematocrit 40.2 % (41-53); Hemoglobin 14.1 g/dL (13.5-17.5); Lymphocytes Absolute Auto 1900 /uL (1100-4500); Lymphocytes Percent Auto 15.1 % (25-40); Mean Corpuscular HGB Conc 35.2 % (30-36); Mean Corpuscular Hemoglobin 30.9 PG (26-34); Mean Corpuscular Volume 87.8 fL (80-100); Monocytes Absolute Auto 2300 /uL (0-900); Monocytes Percent Auto 18.2 % (3-14); Neutrophils Absolute Auto 8200 /uL (1500-7000); Neutrophils Percent Auto 65.6 % (50-75); Platelet Count 168 X10^3/uL (150-400); Red Blood Cell Count 4.57 X10^6/uL (4.5-5.9); Red Cell Distribution Width 13.3 % (11.6-14.8); White Blood Cell Count 12.4 X10^3/uL (4.5-11.0)
[2020-07-21 05:43] LABS: BUN Creatinine Ratio 25.8 (6-22); Blood Urea Nitrogen 23 mg/dL (9-20); Calcium 7.4 mg/dL (8.4-10.2); Carbon Dioxide 25 mmol/L (22-32); Chloride 99 mmol/L (98-107); Estimated Glomerular Filt Rate > 60.0 mL/min (>60); Glucose 102 mg/dL (80-110); HEMOLYSIS 20 (0-50); Potassium 3.7 mmol/L (3.4-5.1); Sodium 129 mmol/L (137-145)
[2020-07-21 05:54] LABS: Troponin I 0.029 ng/mL (0.01-0.034)
[2020-07-21 05:56] LABS: Procalcitonin < 0.05 ng/mL (<0.5)
[2020-07-21 06:07] LABS: Creatine Kinase 5648 U/L (55-170)
[2020-07-21 06:15] LABS: CKMB % Relative Index 0.1 % (1.5-5.0); Creatine Kinase MB 5.74 ng/mL (<2.37)
[2020-07-21] MEDS: LEVOTHYROXINE 137 MCG TABLET PO (06:45)
[2020-07-21] MEDS: VANCOMYCIN 1,500 MG/300 ML FROZ.PIGGY 200 MG IV (06:48)
[2020-07-21] MEDS: DEXTROSE 50 % IN WATER 25 GM/50 ML SYRINGE IV (08:04)
--- NOTE | 2020-07-21 08:25 | PC.NURSE ---
Addendum entered by Layla Morrison R.N. 07/21/20 11:24: Patient placed on own cpap with 2L O2 bleed in. Sats 94-95%, oral temp 99.0 Addendum entered by Layla Morrison R.N. 07/21/20 10:49: Patient back from MRI, oral temp 103.2 tylenol suppository given. Sats on RA 90% placed on 2L sats 94-95% RR41. Addendum entered by Layla Morrison R.N. 07/21/20 10:04: Patients Itzel at the bedside, Dr Carrillo in to assess patient. Patient taken down for MRI. Addendum entered by Layla Morrison R.N. 07/21/20 09:17: CBG 83, ate about 75% of breakfast with assist, patient pocketing food, Dr Carrillo aware orders received. Changed IVF as ordered. Original Note: Patient drowsy but arousable, able to state the month and where and what town he was in. Denies pain. CBG 64, given orange juice, recheck CBG 10 minutes later 54, given 1/2 amp D50 per protocol, 20 min later CBG 89. Patient eating breakfast.
[2020-07-21] MEDS: DEXTROSE 5%-0.9% NS 1,000 ML 100 ML IV (09:19)
--- NOTE | 2020-07-21 09:39 | DI.MRI.S_ITS ---
PROCEDURE: MR HEAD/BRAIN WO/W CON INDICATIONS: HSV 1 encephalitis TECHNIQUE: Noncontrast axial T1 spin echo, axial T2 fast spin echo, sagittal and axial FLAIR, coronal T2 fast spin echo, axial gradient echo, axial diffusion and ADC through the brain. After the administration of contrast, axial and coronal T1 spin echo with fat saturation through the brain. COMPARISON: Located Within [facility], CT, CT HEAD/BRAIN WO CON, 07/20/2020, 11:06. FINDINGS: Image quality: Partially degraded by motion artifact. CSF spaces: Basal cisterns are patent. No extra-axial fluid collections. Ventricles are normal in size and shape. Brain: No midline shift. No intracranial bleeds or masses. No abnormal intracranial enhancement. There is cerebral volume loss for age. There is periventricular white matter chronic small vessel ischemic change. The brainstem appears normal. Diffusion-weighted images demonstrate no acute ischemic insults. No chronic ischemic insults. Normal intravascular flow voids are present. Skull and face: Calvarial marrow is normal in signal. Orbits appear normal. Sinuses: Sinuses and mastoids appear clear. IMPRESSION: 1. Volume loss and small vessel ischemic disease. 2. No acute process. No recent infarct. Dictated by: Kee Floyd M.D. on 07/21/2020 at 10:27 Approved by: Kee Floyd M.D. on 07/21/2020 at 10:29
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
[2020-07-21 10:12] LABS: Alanine Aminotransferase 92 IU/L (<50); Albumin 2.9 g/dL (3.5-5.0); Albumin Globulin Ratio 1.3 (1.0-2.8); Alkaline Phosphatase 49 U/L (38-126); Aspartate Aminotransferase 166 IU/L (17-59); Bilirubin Total 1.4 mg/dL (0.2-1.3); Bilirubin Unconjugated 1.3 mg/dL (0.0-1.1); Globulin 2.2 g/dL (1.7-4.1); HEMOLYSIS 16 (0-50); Total Protein 5.1 g/dL (6.3-8.2)
[2020-07-21] MEDS: HEPARIN 5,000 UNIT/ML VIAL 5000 UNIT SUBCUT ×2 (10:35→20:15)
[2020-07-21] MEDS: ACETAMINOPHEN 650 MG SUPP PR ×2 (10:36→22:03)
[2020-07-21 10:53] LABS: HIV 1 & 2 Ab/Ag 4th Gen Combo NEGATIVE (NEGATIVE)
--- NOTE | 2020-07-21 11:05 | PT-IP ANOTE ---
PT order received. Pt dx with Encephalitis (no precautions noted as Dr. Carrillo stated) and currently with high fever, confusion and significant weakness. KAVITHA Rich recommended to place PT on hold at this point. Will attempt PT when pt is medically stable and appropriate.
[2020-07-21] MEDS: CALCIUM GLUCONATE 9.3 MEQ in SODIUM CHLORIDE 0.9% 50 ML 140 ML IV (11:12)
--- NOTE | 2020-07-21 11:20 | SLP.IPNOTE ---
ST order received. ICT SALES ASSISTANT spoke to KAVITHA Rich via telephone to discuss if patient was appropriate to be seen for a ST evaluation. KAVITHA Rich reported that patient is not medically stable and recommended to place ST on hold at this time. Will attempt ST when patient is medically stable and appropriate to evaluate. - Yanira Kumar, MS, CF-ICT SALES ASSISTANT
[2020-07-21] MEDS: KETOROLAC 30 MG/ML VIAL IV (12:43)
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
[2020-07-21] MEDS: INSULIN ASPART 100 UNIT/ML INSULN PEN SUBCUT (16:49)
[2020-07-21] MEDS: DEXTROSE 5%-0.9% NS 1,000 ML 150 ML IV ×2 (16:53→23:36)
[2020-07-21] MEDS: LOSARTAN 50 MG TABLET PO (20:15)
[2020-07-21] MEDS: ACETAMINOPHEN 325 MG TABLET 650 MG PO (20:23)
[2020-07-22] VITALS (15 sets, daily range): BP systolic 116–165; BP diastolic 61–97; PULSE 66–103; RESP 16–34; TEMP 36.3–39.2; O2SAT 92–98
[2020-07-22] MEDS: ACYCLOVIR IV ×3 (04:43→20:19)
[2020-07-22] MEDS: DEXTROSE 5% IV ×3 (04:43→20:19)
[2020-07-22] MEDS: WATER IV ×3 (04:43→20:19)
[2020-07-22 05:30] LABS: Add Manual Diff / Slide Review NO; Basophils Absolute Auto 0 /uL (0-100); Basophils Percent Auto 0.2 % (0-2); Eosinophils Absolute Auto 0 /uL (0-450); Hematocrit 42.1 % (41-53); Hemoglobin 14.9 g/dL (13.5-17.5); Lymphocytes Absolute Auto 900 /uL (1100-4500); Lymphocytes Percent Auto 7.5 % (25-40); Mean Corpuscular HGB Conc 35.4 % (30-36); Mean Corpuscular Volume 87.8 fL (80-100); Monocytes Absolute Auto 1600 /uL (0-900); Monocytes Percent Auto 12.9 % (3-14); Neutrophils Absolute Auto 9600 /uL (1500-7000); Neutrophils Percent Auto 79.4 % (50-75); Platelet Count 171 X10^3/uL (150-400); Red Cell Distribution Width 13.4 % (11.6-14.8); White Blood Cell Count 12.1 X10^3/uL (4.5-11.0)
[2020-07-22 05:33] LABS: Alanine Aminotransferase 100 IU/L (<50); Albumin 3.4 g/dL (3.5-5.0); Albumin Globulin Ratio 1.4 (1.0-2.8); Alkaline Phosphatase 58 U/L (38-126); Aspartate Aminotransferase 129 IU/L (17-59); BUN Creatinine Ratio 21.1 (6-22); Bilirubin Total 1.1 mg/dL (0.2-1.3); Blood Urea Nitrogen 16 mg/dL (9-20); Calcium 7.5 mg/dL (8.4-10.2); Carbon Dioxide 27 mmol/L (22-32); Chloride 98 mmol/L (98-107); Estimated Glomerular Filt Rate > 60.0 mL/min (>60); Globulin 2.4 g/dL (1.7-4.1); Glucose 204 mg/dL (80-110); HEMOLYSIS < 15 (0-50); Lipase 159 U/L (23-300); Magnesium 2.1 mg/dL (1.6-2.3); Potassium 3.8 mmol/L (3.4-5.1); Sodium 130 mmol/L (137-145); Total Protein 5.8 g/dL (6.3-8.2)
[2020-07-22 05:39] LABS: Creatine Kinase 2375 U/L (55-170)
[2020-07-22 06:12] LABS: Procalcitonin < 0.05 ng/mL (<0.5)
[2020-07-22] MEDS: DEXTROSE 5%-0.9% NS 1,000 ML 150 ML IV ×2 (07:31→21:57)
[2020-07-22] MEDS: ACETAMINOPHEN 650 MG SUPP PR (07:34)
[2020-07-22] MEDS: INSULIN ASPART 100 UNIT/ML INSULN PEN SUBCUT ×3 (07:35→21:17)
[2020-07-22] MEDS: PANTOPRAZOLE 40 MG VIAL IV (08:40)
[2020-07-22] MEDS: HEPARIN 5,000 UNIT/ML VIAL 5000 UNIT SUBCUT ×2 (08:41→20:19)
[2020-07-22] MEDS: KETOROLAC 30 MG/ML VIAL IV ×2 (09:13→17:14)
[2020-07-22] MEDS: POLYMYXIN B SULF/TRIMETH OPHTH 10 ML 1 DROPS EYE-BOTH ×4 (09:16→21:18)
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
--- NOTE | 2020-07-22 11:24 | PT-IP ANOTE ---
Per Dr. Carrillo pt is no longer appropriate for physical therapy. DC on 07/22/2020 completed in system
--- NOTE | 2020-07-22 11:24 | OT.IPNOTE ---
Per Dr. Carrillo states not appropriate for therapy services at this time therefore discharge OT eval orders.
--- NOTE | 2020-07-22 13:36 | PM.CHAP ---
Staff referral. Delightful visit with spouse and daughter. Thank you to our staff for the exception to allow additional support for Pt and family. Left contact information with spouse in case she needs additional help. Ankit Lane, [facility] [phone]
[2020-07-22] MEDS: BISACODYL 10 MG SUPP PR (13:47)
--- NOTE | 2020-07-22 14:10 | PC.NURSE ---
Pt given a thorough bath, gown, and linen change. Suppository given to assist with bm. Eye drops placed. Pt is suddenly very awake, oriented to self, able to drink water and eyes wide open. Answered a few basic questions and now is back asleep. Temp 97.1. Notified Dr. Carrillo of state of awareness and she spoke briefly with Pt and then returned to sleep. CPAP back on for sleep. Arlin Lane visited with family. Comfort Cart provided for family.
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
--- NOTE | 2020-07-22 19:05 | PC.NURSE ---
1900-Pt ate 75% of meal. Notified RN, who told this CHALK CUTTER to check BS at 2100.
[2020-07-22] MEDS: LOSARTAN 50 MG TABLET PO (20:19)
--- NOTE | 2020-07-22 23:18 | PC.NURSE ---
Evening shift Report received, care assumed 1530. Pt. awake, alert, oriented to self, month and year. Speech is clear, coherent, though sometimes slow. Orientation to others, situation, and place is intermittent. Fidgeting with IV's, tele, etc. and daughter at bedside. Pt. able to communicate need for bowel movement; used bedpan x2. Ate dinner with assistance of . Denies pain. In good spirits. Family left bedside in the evening. CPAP in place, pt. sleeping. Pt woke up, disoriented, but relatively calm and able to communicate clearly and understands verbal communication, follows commands.
[2020-07-23] VITALS (18 sets, daily range): BP systolic 128–157; BP diastolic 64–111; PULSE 62–88; RESP 16–24; TEMP 36.2–38.7; O2SAT 94–100
[2020-07-23] MEDS: DEXTROSE 5% IV ×3 (04:05→20:00)
[2020-07-23] MEDS: ACYCLOVIR IV ×3 (04:05→20:00)
[2020-07-23] MEDS: WATER IV ×3 (04:05→20:00)
[2020-07-23] MEDS: ACETAMINOPHEN 650 MG SUPP PR (04:44)
[2020-07-23 05:12] LABS: Add Manual Diff / Slide Review NO; Basophils Absolute Auto 0 /uL (0-100); Basophils Percent Auto 0.3 % (0-2); Eosinophils Absolute Auto 100 /uL (0-450); Eosinophils Percent Auto 0.4 % (2-4); Hematocrit 44.1 % (41-53); Hemoglobin 15.6 g/dL (13.5-17.5); Lymphocytes Absolute Auto 800 /uL (1100-4500); Mean Corpuscular HGB Conc 35.4 % (30-36); Mean Corpuscular Hemoglobin 31.2 PG (26-34); Mean Corpuscular Volume 88.2 fL (80-100); Monocytes Absolute Auto 1600 /uL (0-900); Monocytes Percent Auto 13.3 % (3-14); Neutrophils Absolute Auto 9400 /uL (1500-7000); Platelet Count 174 X10^3/uL (150-400); Red Blood Cell Count 4.99 X10^6/uL (4.5-5.9); Red Cell Distribution Width 13.5 % (11.6-14.8); White Blood Cell Count 11.9 X10^3/uL (4.5-11.0)
[2020-07-23 05:18] LABS: Alanine Aminotransferase 116 IU/L (<50); Albumin 3.7 g/dL (3.5-5.0); Albumin Globulin Ratio 1.5 (1.0-2.8); Alkaline Phosphatase 64 U/L (38-126); Aspartate Aminotransferase 112 IU/L (17-59); BUN Creatinine Ratio 15.8 (6-22); Bilirubin Total 1.1 mg/dL (0.2-1.3); Blood Urea Nitrogen 12 mg/dL (9-20); Carbon Dioxide 31 mmol/L (22-32); Chloride 100 mmol/L (98-107); Creatine Kinase 1050 U/L (55-170); Estimated Glomerular Filt Rate > 60.0 mL/min (>60); Globulin 2.5 g/dL (1.7-4.1); Glucose 167 mg/dL (80-110); HEMOLYSIS < 15 (0-50); Magnesium 2.2 mg/dL (1.6-2.3); Potassium 3.7 mmol/L (3.4-5.1); Sodium 136 mmol/L (137-145); Total Protein 6.2 g/dL (6.3-8.2)
[2020-07-23] MEDS: DEXTROSE 5%-0.9% NS 1,000 ML 150 ML IV (05:51)
[2020-07-23] MEDS: KETOROLAC 30 MG/ML VIAL IV ×2 (05:51→16:25)
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
--- NOTE | 2020-07-23 16:07 | CM.DPC ---
DCP: continued: Checked in again with pt's Itzel during Team Bedside Rounds. RN Leatha was busy providing bedside care to pt. Dr. Head stated he would be back later to speak with pt and family after he was able to look in detail at this case. He did confirm that he agreed with Dr. aCrrillo that stay in hospital would be lengthy. Asked about appropriateness for PT and OT. He stated these should be reordered/done. DCP team will be following closely as d/c needs become clearer.
--- NOTE | 2020-07-23 16:10 | PC.NURSE ---
Pt with substantial improvement to mentation today. Alert, answering questions with speech delay. But Able to recall that today, Jul 23 was his 51st wedding anniversary. Frustration with inability to express needs at times. Explained to Pt his recovery will be long, and challenging at times, as his mobility and overall decline prior to hospitalization. Family understands and pleased with improvement today. Pt anxious, pulling at burger, please take this out After multiple attempts to remove himself, we removed Burger @ 1405. Pt is aware that he will need to use urinal, family updated. 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 Incont of stool x3 this shift. Update to Dr Head, and GI panel to be collected. This is likely from Acycivir, IVF stopped. SL. PIV x3.
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
[2020-07-23] MEDS: POLYMYXIN B SULF/TRIMETH OPHTH 10 ML 1 DROPS EYE-BOTH ×2 (16:26→21:03)
[2020-07-23] MEDS: INSULIN ASPART 100 UNIT/ML INSULN PEN SUBCUT (16:34)
[2020-07-23] MEDS: HEPARIN 5,000 UNIT/ML VIAL 5000 UNIT SUBCUT (21:02)
[2020-07-23] MEDS: LOSARTAN 50 MG TABLET PO (21:05)
[2020-07-24] VITALS (24 sets, daily range): BP systolic 122–180; BP diastolic 54–90; PULSE 16–117; RESP 16–30; TEMP 36.6–39.3; O2SAT 89–96
[2020-07-24] MEDS: ACYCLOVIR IV ×3 (04:13→20:07)
[2020-07-24] MEDS: WATER IV ×3 (04:13→20:07)
[2020-07-24] MEDS: DEXTROSE 5% IV ×3 (04:13→20:07)
[2020-07-24 05:23] LABS: Add Manual Diff / Slide Review NO; Basophils Absolute Auto 0 /uL (0-100); Basophils Percent Auto 0.4 % (0-2); Eosinophils Absolute Auto 100 /uL (0-450); Eosinophils Percent Auto 0.5 % (2-4); Lymphocytes Absolute Auto 1000 /uL (1100-4500); Lymphocytes Percent Auto 9.6 % (25-40); Mean Corpuscular HGB Conc 34.2 % (30-36); Mean Corpuscular Hemoglobin 30.3 PG (26-34); Mean Corpuscular Volume 88.6 fL (80-100); Monocytes Absolute Auto 1200 /uL (0-900); Monocytes Percent Auto 11.5 % (3-14); Neutrophils Absolute Auto 8300 /uL (1500-7000); Platelet Count 192 X10^3/uL (150-400); Red Blood Cell Count 4.96 X10^6/uL (4.5-5.9); Red Cell Distribution Width 13.3 % (11.6-14.8); White Blood Cell Count 10.6 X10^3/uL (4.5-11.0)
[2020-07-24 05:29] LABS: Creatine Kinase 420 U/L (55-170)
[2020-07-24 05:31] LABS: Alanine Aminotransferase 119 IU/L (<50); Albumin 3.3 g/dL (3.5-5.0); Albumin Globulin Ratio 1.4 (1.0-2.8); Alkaline Phosphatase 61 U/L (38-126); Aspartate Aminotransferase 88 IU/L (17-59); BUN Creatinine Ratio 15.7 (6-22); Bilirubin Total 1.2 mg/dL (0.2-1.3); Bilirubin Unconjugated 1.1 mg/dL (0.0-1.1); Blood Urea Nitrogen 13 mg/dL (9-20); Calcium 7.7 mg/dL (8.4-10.2); Carbon Dioxide 29 mmol/L (22-32); Chloride 100 mmol/L (98-107); Estimated Glomerular Filt Rate > 60.0 mL/min (>60); Globulin 2.4 g/dL (1.7-4.1); Glucose 110 mg/dL (80-110); HEMOLYSIS < 15 (0-50); Potassium 3.7 mmol/L (3.4-5.1); Sodium 134 mmol/L (137-145); Total Protein 5.7 g/dL (6.3-8.2)
[2020-07-24] MEDS: LEVOTHYROXINE 137 MCG TABLET PO (06:28)
[2020-07-24] MEDS: KETOROLAC 30 MG/ML VIAL IV ×2 (06:37→23:57)
[2020-07-24] MEDS: POLYMYXIN B SULF/TRIMETH OPHTH 10 ML 1 DROPS EYE-BOTH ×4 (08:51→20:09)
[2020-07-24] MEDS: SODIUM CHLORIDE 0.9% FLUSH 10 ML IV ×3 (08:51→20:09)
[2020-07-24] MEDS: HEPARIN 5,000 UNIT/ML VIAL 5000 UNIT SUBCUT ×2 (08:52→20:07)
[2020-07-24] MEDS: PANTOPRAZOLE 40 MG VIAL IV (08:52)
--- NOTE | 2020-07-24 08:54 | SLP.IPNOTE ---
MARSHMALLOW MAKER spoke to nursing who reported that patient was somnolent and recommended ST follow-up later in the morning / early afternoon. Will re-attempt ST as able. - Yanira Kumar MS, CF-[employer]SHMALLOW MAKER
--- NOTE | 2020-07-24 12:09 | SLP.IPNOTE ---
Second attempt to see pt today. Pt remains sleeping and difficult to arouse (per family). According to family and nursing reports, when patient is awake, he is eating well and without s/sx aspiration/dysphagia. Will continue to monitor.
[2020-07-24] MEDS: DEXTROSE 5%-0.45% NS 1,000 ML 50 ML IV (12:30)
--- NOTE | 2020-07-24 12:47 | PT-IP ANOTE ---
Per RN pt cannot be aroused and has been asleep since last night. Will check back with pt tomorrow to see if pt is appropriate for PT.
--- NOTE | 2020-07-24 12:47 | OT.IP.TRT ---
Current Diagnoses Meningitis, unspecified (07/20/20) Occupational Therapy Treatment Note M3 OT- IP Subjective and Pain Start: 07/24/20 13:00 Freq: Status: Active Protocol: Document 07/24/20 13:00 CGR (Rec: 07/24/20 13:01 CGR [id number]) OT- Subjective Occupational Therapy Visit Type Type Administrative Note Notes Attempted to see pt for OT eval . Pt is unresponsive at this time. Per nursing pt has been unresponsive since yesterday evening. Will hold and continue to follow.
--- NOTE | 2020-07-24 13:17 | DIET.PN ---
Dietary Progress Note 70y M referred to nutrition for decreased intake found to have HSV1 encephalopathy explaining reduced intake secondary to confusion, fever, headache. Pt being treated for HSV1. Per family, pts intake is >75% when awake. Pt has BMI 31.7 and A1c 7.1% well controlled c Tresiba. Pt followed by SLT and nursing report no signs of dysphagia at this time. Consider ONS Glucerna to replace any meal not eaten by pt r/t somnolence.
--- NOTE | 2020-07-24 15:00 | P.PN_ITS ---
Subjective Subjective Date Patient Seen: 07/24/20 Time Patient Seen: 13:00 Interval history: Ottoniel Lewis is a 70-year-old male with a past medical history significant for hypertension, diabetes mellitus type 2, insulin using, with peripheral neuropathy, hypothyroidism, nephrolithiasis and BPH who presented to the ED with high fever and headache x3 days with increasing confusion. He is admitted with HSV-1 encephalitis. The patient is resting in bed. He continues to be febrile most recently early this AM up to 102.8. Continue to use tylenol and toradol as needed to treat fever. His mentation waxes and wanes but is generally trending in the right direction. Was alert for much of the day yesterday until the early evening but has been sleeping really since then. He did wake up around 2:00 p.m. today. Will continue to encourage activity during wakeful times but also encourage sleep at night. Exam Vital Signs (past 8 hours): - 07/24/20 07:31 07/24/20 08:00 07/24/20 08:31 Temperature 98.9 F 98.9 F Pulse Rate 95 H Respiratory Rate 20 Blood Pressure 152/82 H Pulse Oximetry 96 94 07/24/20 11:53 07/24/20 12:15 Temperature 98.9 F Pulse Rate 67 Respiratory Rate 20 Blood Pressure 122/72 Pulse Oximetry 95 95 Oxygen Delivery Method Room Air,CPAP Oxygen Flow Rate 0 Narrative Exam Narrative: General: Elderly male lying in bed and in no acute distress, flushed, mentation waxing and waning, somnolent but arousable at times other times obtunded, able to follow simple commands when awake and alert, confused, alert oriented to person and place only, impaired cognition unable to remember short-term memory. HEENT: Normocephalic, atraumatic. External ears without defect. Pupils equal, round, and reactive to light. Bilateral conjunctivitis resolved. Mild bilateral lid lag. Oropharynx free of erythema and cobble stoning with moist mucosa. No facial or oral lesions. Neck: Supple with full range of motion. No jugular venous distension. No lymphadenopathy or thyromegaly. Cardiovascular: Regular rate and rhythm without murmurs, rubs, or gallops appreciated. Pulmonary: Clear to auscultation bilaterally without crackles, wheezes, or rhonchi. Normal respiratory effort with no use of accessory muscles. Abdomen: Soft, bowel sounds present, nontender, nondistended. No hepatosplenomegaly or masses appreciated. Genitourinary: Foote catheter placed. No genital lesions. Extremities: No clubbing, cyanosis, or edema. Patient favors and moves right side more readily than left. Skin: Normal temperature, turgor, and texture; no rash, ulcers, or subcutaneous nodules appreciated. Neurological: Mentation waxing and waning and somnolent but arousable. Follow simple commands such as wiggling fingers and toes. Confused, alert oriented to person only, impaired cognition unable to remember short-term memory.Asymmetri jeovany rapid alternating movements with L worse than R, strength and sensation unremarkable on exam today, although L may be very slightly weaker than the R. Objective Labs Result Diagrams: 07/24/20 05:00 07/24/20 05:00 Labs: Laboratory Results - last 24 hr 07/24/20 07/24/20 07/24/20 05:00 05:00 05:00 WBC 10.6 RBC 4.96 Hgb 15.0 Hct 44.0 MCV 88.6 MCH 30.3 MCHC 34.2 RDW 13.3 Plt Count 192 Neut % (Auto) 78.0 H Lymph % (Auto) 9.6 L [place] % (Auto) 11.5 Eos % (Auto) 0.5 L Baso % (Auto) 0.4 Neut # (Auto) 8300 H Lymph # (Auto) 1000 L [place] # (Auto) 1200 H Eos # (Auto) 100 Baso # (Auto) 0 Sodium 134 L Potassium 3.7 Chloride 100 Carbon Dioxide 29 BUN 13 Creatinine 0.83 Estimated GFR > 60.0 BUN/Creatinine Ratio 15.7 Glucose 110 Calcium 7.7 L Total Bilirubin 1.2 Conjugated Bilirubin 0.0 Unconjugated Bilirubin 1.1 AST 88 H ALT 119 H Alkaline Phosphatase 61 Total Creatine Kinase 420 H D Total Protein 5.7 L Albumin 3.3 L Globulin 2.4 Albumin/Globulin Ratio 1.4 Assessment & Plan Assessment & Plan narrative: Ottoniel Lewis is a 70-year-old male with a past medical history significant for hypertension, diabetes mellitus type 2, insulin using, with peripheral neuropathy, hypothyroidism, nephrolithiasis and BPH who presented to the ED with high fever and headache x3 days with increasing confusion. He remains admitted for HSV-1 encephalitis. He is slowly improving with acyclovir therapy. 1. Acute HSV 1 encephalitis, present on admission. Active. -Patient presented with progressive headache, high fevers, chills, nausea without vomiting, fatigue and confusion x3 days. -Infectious workup in ED was negative including: CT brain without contrast, chest x-ray, CT chest abdomen and pelvis with contrast, and urinalysis. COVID- 19 negative x2. Respiratory PCR negative. ED physician attempted LP which was unsuccessful. Consulted Interventional Radiology performed fluoroscopy guided LP. -CSF PCR positive for HSV 1. CSF was consistent with viral etiology and demonstrated: Clear and colorless, WBC 216 (monos 90% and polys 10%), slightly elevated protein at 76, glucose normal 43. -CT brain without contrast did not demonstrate any acute intracranial abnormalities. -MR with and without contrast did not demonstrate any acute intracranial abnormalities. Chronic microvascular ischemic changes present. Received Zosyn 3.375 g x 1 and ceftriaxone 2 g IV x1 in ED. Continue ceftriaxone 2 g IV every 12 hours and vancomycin with dosing per pharmacist pending CSF analysis then discontinued. -Started and continue acyclovir 10 milligrams/kilogram with 1100 mg IV every 8 hours. Will need at least 7 days of thearpy but treatment can extend as long as 21 days depending on symptoms and improvement. -Continue aggressive IV fluid hydration with D5 normal saline at 150 mL /hr. -Continue seizure precautions. -HSV 1 encephalitis carries a 20-30% mortality rate and high morbidity rate and without starting treatment within 1st 24 hours of infection patient undoubtedly will permanent neurological deficit if he survives infection. -Discussed case with Infectious Disease at [facility] who agrees with current management with acyclovir, aggressive IV fluid hydration, and supportive care. Discussed case with on-call Neurology at [facility] who also agrees with current management. Neurology recommends if patient were to develop seizures or if he became completely obtunded empirically treating for seizure and loading with Keppra 1000 mg IV x1 and 500 mg IV twice daily. If patient were to decompensate could consider transfer, however, currently there is nothing further that they can offer at tertiary center. 2. Acute rhabdomyolysis, present on admission. Active. -Patient had unwitnessed fall on boat without obvious loss of consciousness or prolonged time down. -Initial creatinine kinase 6823 and trending down. Stopped trending this morning. Troponin was borderline at 0.035 in setting of rhabdomyolysis. Chest x-ray of poor quality shows cardiomegaly with interstitial prominence, however, pro BNP is 428 and did not show any signs of fluid overload and rather appeared dry. -Continue aggressive IV fluid hydration with D5 normal saline. 3. Acute hyponatremia secondary to dehydration, present on admission. Resolved -Initial sodium 126. Sodium level trending up now one hundred twenty-nine with IV fluid hydration. Now resolved. -Continue aggressive IV fluid hydration with D5 normal saline. -Continue to monitor sodium level daily. 4. Acute hypokalemia, present on admission. Resolved. -admission labs find a potassium of 3.3. No evidence of acidosis. -ordered KCl rider 40 mEq. Now improved. 5. Diabetes mellitus type 2, insulin using, present on admission. Stable. -Hemoglobin A1c 7.1%. -Patient usually takes Tresiba 90 units daily at bedtime. Held received but as patient is not taking in much PO intake due to encephalitis. -Continue every 6 hour blood glucose checks and medium dose correctional scale insulin. -Continue carbohydrate consistent/heart healthy diet with 1:1 feeding and feed only when alert. 6. Hypertension, chronic, present on admission. Stable. -Continue home losartan 50 mg daily. 7. Benign prostatic hypertrophy with urinary retention, chronic, present on admission. Stable. -Patient takes beta health for his prostate. He denies difficulty urinating though he has previously required catheter placement for obstruction. -Straight catheterization performed in the ED to obtain urine sample which does not appear infected. Patient continues to have waxing and waning mentation and urinary retention on bladder scan, therefore, Foote catheter placed. Continue Foote catheter management. -Started tamsulosin 0.4 mg daily. 8. Bilateral conjunctivitis, present on admission. Resolving. -Continue polymyxin eye drops 4 times daily x 7 days. 9. Hepatic steatosis, chronic, present on admission. Stable. -Diffuse hepatic steatosis on CT abdomen and pelvis. Patient has mild transaminitis. -Continue to monitor LFTs closely. Code status: Patient states his desire to be DNR which is confirmed with the patient's at bedside whom he designates to be his surrogate decision maker. VTE prophylaxis: Bilateral SCDs, heparin Disposition: Remains inpatient, anticipate at least 7 days of IV antiviral therapy at this time. He continues to improve. Will start PT/OT. Quality VTE Deep Vein Thrombosis/Pulmonary Embolism Present on Admission: No
--- NOTE | 2020-07-24 19:05 | PC.NURSE ---
Addendum entered by Veda Russ R.N. 07/24/20 22:56: After last note patient felt very warm, was flushed, temporal temp of 102.2. Tylenol suppository given. I notified Ira Sofia of temp, increased BP 180/90, patient tachycardic at 110-117 bpm, the need to bleed 3L O2 into C-pap to keep sats 90-93% BP rechecked at 130/73, pulse tachycardic at 114-119. BP med not given due to NPO status, Dimas Sofia asked me to give it crushed with bite of pudding w/aspiration precautions in place. I could not wake patient or get him to open eyes upon 2 attempts to medicate him. Dimas Sofia aware that BP is lower now and that I was unable to give BP med. At 2230 temp rechecked at 101.5. RT in room to assess/treat, asked if nursing wanted to do deep suction, I told her that would be up to the Nurse Practitioner. Pt appears calm, respirations 28/minute, 3L O2 bled into C-pap and sats still maintaining 90-91. Original Note: Evening notes: At 1600 Ottoniel's spouse in room reporting to ICT SYSTEMS TEST ENGINEER that he was coughing when she gave him water, when patient was observed in bed he was partially reclined. Aspiration precautions reviewed with spouse and patient. RT in room to assess/treat, by the time I got into room & see patient he was asleep with CPAP on. Opened his eyes and looked at me but non-verbal at that time. Respirations relaxed at 18/minute, saturation 95% on RA/CPAP. VS stable. Tele monitoring continues. Pt given rest period. 0: Patient awake, when ICT SYSTEMS TEST ENGINEER attempted to give him a few bites of mashed potatoes, he was observed holding them in his mouth, not swallowing w/pierced lips. No further attempt to feed him, I told ICT SYSTEMS TEST ENGINEER that he should be NPO from now until ST can re-evaluate him in the morning. I set up [place] suction & was able to suction some phlegm and potato from mouth. He is able to cough, his cough is very weak. Instructed to clear throat & cough, gave another weak cough, unable to clear secretions from back of throat, audible breath sounds are gurgly. [place] suction done again, able to remove some sputum from mouth. Respirations 22/minute, RA oxygen maintaining 94-95% with monitor on left great toe. Patient still mostly non-verbal but when I told him my name & that I was his nurse he said ok Veda very clearly. Hand machine made shoe unit worker is equal, weak. Pupils equal & reactive. Denies any pain or SOB. Approx 1 hour post patient having few bites of food, he was incontinent of xlarge amt of urine, linen/brief changed, repositioned patient to left. He is a 2-3 max for repositioning, he is unable to assist in repositioning or ADL'.
[2020-07-24] MEDS: ACETAMINOPHEN 650 MG SUPP PR (20:27)
[2020-07-24] MEDS: LOSARTAN 50 MG TABLET PO (20:46)
--- NOTE | 2020-07-24 20:48 | PM.EVENT ---
Event Note Event Note: Patient was reported to be febrile at 101, nursing planned to give him a tylenol suppository. They indicated that he was very hypertensive, earlier in the day, they had witnessed him coughing after eating and drinking. I requested she try to crush his evening blood pressure medication into applesauce and try to feed it to him. If that fails, will write for hydralazine or IV enalopril.
[2020-07-25] VITALS (21 sets, daily range): BP systolic 103–162; BP diastolic 58–88; PULSE 69–88; RESP 14–30; TEMP 36.1–38.2; O2SAT 89–99
[2020-07-25] MEDS: ACYCLOVIR IV ×3 (04:06→20:30)
[2020-07-25] MEDS: DEXTROSE 5% IV ×3 (04:06→20:30)
[2020-07-25] MEDS: WATER IV ×3 (04:06→20:30)
[2020-07-25 05:29] LABS: Add Manual Diff / Slide Review NO; Basophils Absolute Auto 100 /uL (0-100); Basophils Percent Auto 0.6 % (0-2); Eosinophils Absolute Auto 100 /uL (0-450); Eosinophils Percent Auto 0.4 % (2-4); Hematocrit 49.3 % (41-53); Lymphocytes Absolute Auto 1000 /uL (1100-4500); Mean Corpuscular HGB Conc 34.4 % (30-36); Mean Corpuscular Hemoglobin 30.8 PG (26-34); Mean Corpuscular Volume 89.4 fL (80-100); Monocytes Absolute Auto 1900 /uL (0-900); Monocytes Percent Auto 9.8 % (3-14); Neutrophils Absolute Auto 16100 /uL (1500-7000); Neutrophils Percent Auto 84.2 % (50-75); Platelet Count 205 X10^3/uL (150-400); Red Blood Cell Count 5.51 X10^6/uL (4.5-5.9); Red Cell Distribution Width 13.5 % (11.6-14.8); White Blood Cell Count 19.1 X10^3/uL (4.5-11.0)
[2020-07-25 05:46] LABS: Alanine Aminotransferase 119 IU/L (<50); Albumin 3.6 g/dL (3.5-5.0); Albumin Globulin Ratio 1.4 (1.0-2.8); Alkaline Phosphatase 71 U/L (38-126); Aspartate Aminotransferase 63 IU/L (17-59); BUN Creatinine Ratio 20.8 (6-22); Bilirubin Total 1.6 mg/dL (0.2-1.3); Bilirubin Unconjugated 1.5 mg/dL (0.0-1.1); Blood Urea Nitrogen 20 mg/dL (9-20); Calcium 8.4 mg/dL (8.4-10.2); Carbon Dioxide 30 mmol/L (22-32); Chloride 99 mmol/L (98-107); Estimated Glomerular Filt Rate > 60.0 mL/min (>60); Globulin 2.6 g/dL (1.7-4.1); Glucose 181 mg/dL (80-110); HEMOLYSIS < 15 (0-50); Potassium 3.7 mmol/L (3.4-5.1); Sodium 137 mmol/L (137-145); Total Protein 6.2 g/dL (6.3-8.2)
--- NOTE | 2020-07-25 06:08 | PC.NURSE ---
NOC NOTE: pt medicated with toradol at midnight for temp of 101.9 with good results. Pt remained minimally responsive until 0545. At 0545 pt had eye open and was making eye contact for short periods of time, pt able to cough when cued but cough was every weak. Upper airways sounded moist, RT called for suction, verified OK with SAMANTA Sofia for deep suction by RT. O2 sats 90-91% prior to suction and 99% post suction. Ptt is currently NPO due to aspiration.
--- NOTE | 2020-07-25 08:06 | SLP.IPNOTE ---
Patient had aspiration event last night and was made NPO by . Nursing requests hold off on swallow eval this AM and check back later today to see if patent is more alert.
--- NOTE | 2020-07-25 08:10 | DI.RAD.S_ITS ---
PROCEDURE: XR CHEST 1V INDICATIONS: fever, leukocytosis, cough TECHNIQUE: One view of the chest was acquired. COMPARISON: [facility], CR, XR CHEST 1V, 07/20/2020, 10:43. FINDINGS: Surgical changes and devices: None. Lungs and pleura: Lungs are clear. No pleural effusions or pneumothorax. Mediastinum: Mediastinal contours appear normal. Heart is mildly enlarged. Bones and chest wall: No suspicious bony lesions. Overlying soft tissues appear unremarkable. IMPRESSION: No acute cardiopulmonary disease process. Dictated by: Elyse Melendrez MD, PhD on 07/25/2020 at 8:47 Approved by: Elyse Melendrez MD, PhD on 07/25/2020 at 8:48
[2020-07-25] MEDS: POLYMYXIN B SULF/TRIMETH OPHTH 10 ML 1 DROPS EYE-BOTH ×4 (08:44→20:33)
[2020-07-25] MEDS: HEPARIN 5,000 UNIT/ML VIAL 5000 UNIT SUBCUT ×2 (08:44→20:30)
[2020-07-25] MEDS: PANTOPRAZOLE 40 MG VIAL IV (08:45)
[2020-07-25] MEDS: SODIUM CHLORIDE 0.9% FLUSH 10 ML IV ×3 (08:45→20:33)
[2020-07-25] MEDS: DEXTROSE 5%-0.45% NS 1,000 ML 50 ML IV (09:07)
[2020-07-25] MEDS: KETOROLAC 30 MG/ML VIAL IV (09:13)
[2020-07-25] MEDS: PIPERACILLIN-TAZO 3.375 GM/50 ML FROZ.PIGGY IV ×3 (09:33→20:30)
--- NOTE | 2020-07-25 10:29 | OT.IPNOTE ---
Checked with nursing to see pt for OT oriana. Nursing states pt not fully alert at this time and best to check on the pt this PM.
--- NOTE | 2020-07-25 11:00 | PT-IP ANOTE ---
OT checked with RN this morning who noted pt is not responsive or alert enough to participate with PT this AM. Will follow up for possible PM treatment.
[2020-07-25] MEDS: INSULIN ASPART 100 UNIT/ML INSULN PEN SUBCUT ×2 (12:34→16:46)
[2020-07-25] MEDS: LORazepam 2 MG/ML INJ IV ×2 (12:35→22:44)
--- NOTE | 2020-07-25 13:32 | OT.IPNOTE ---
Per nursing pt not appropriate to be seen for therapy at this time, to attempt to see pt for OT tomorrow if appropriate.
--- NOTE | 2020-07-25 13:37 | PT-IP ANOTE ---
Per nursing, pt remains unable to participate with therapies this PM. Will follow up on appropriateness 07/26/20. May seek to discharge current PT orders if pt remains unable to participate.
--- NOTE | 2020-07-25 14:22 | DI.MRI.S_ITS ---
PROCEDURE: MR HEAD/BRAIN WO CON INDICATIONS: HSV encephalitis, possible seizure, decreased L sided mvmts TECHNIQUE: Non-contrast axial T1 spin echo, axial T2 fast spin echo, axial FLAIR, coronal T2 fast spin echo, axial gradient echo, axial diffusion and ADC through the brain. Study ordered as MR I of the brain with and without contrast, MR angiogram of the brain and MR angiogram of the neck. Patient experienced breathing difficult during exam and study was terminated prior to full acquisition of images. COMPARISON: [facility], MR, MR HEAD/BRAIN WO/W CON, 07/21/2020, 9:46. FINDINGS: Image quality: Excellent. CSF spaces: Ventricles appear symmetric in size and shape. Basal cisterns are patent. No extra-axial fluid collections. Brain: No intracranial bleeds or mass effects. There is cerebral volume loss for age. There are periventricular and deep white matter chronic small vessel ischemic changes. Brainstem appears normal. Diffusion-weighted images show no acute ischemic insults. There is increased T2 signal involving the right temporal lobe including the right hippocampus in the right insula compatible with reported history of herpes encephalitis. Subtly increased T2 signal noted in the right frontal lobe adjacent to the falx. No chronic ischemic insults. Normal intravascular flow voids are present. Skull and face: Calvarial bone marrow is normal in signal. Orbits are normal. Sinuses: Sinuses are clear. Fluid signal noted in the dependent portions of the mastoid air cells. IMPRESSION: 1. Limited image acquisition secondary to patient developing breathing difficulty during the study. 2. Abnormal increased T2 signal involving the right temporal lobe including hippocampus, right insula and portion of the right frontal lobe compatible with port history of herpes encephalitis. 3. No acute or chronic infarcts. 4. Moderate to severe diffuse cerebral volume loss. 5. Minimal periventricular and subcortical white matter chronic microvascular ischemic changes. 6. Fluid in the mastoid air cells which could represent serous fluid versus inflammatory process.. Dictated by: Elyse Melendrez MD, PhD on 07/25/2020 at 15:58 Approved by: Elyse Melendrez MD, PhD on 07/25/2020 at 16:05
--- NOTE | 2020-07-25 14:24 | PM.PN.1 ---
Subjective Subjective Date Patient Seen: 07/25/20 Time Patient Seen: 14:24 Interval history: Ottoniel Lewis is a 70-year-old male with a past medical history significant for hypertension, diabetes mellitus type 2, insulin using, with peripheral neuropathy, hypothyroidism, nephrolithiasis and BPH who presented to the ED with high fever and headache x3 days with increasing confusion. He is admitted with HSV-1 encephalitis. Overnight he possibly aspirated. WBC increased and patient remained febrile. He was started on zosyn this AM. He remains fatigued. Did wake up slightly and family at bedside reported a tremor. On my exam he was having uncoordinated and jerky movements of his LUE and hand. He was non-verbal at the time but followed commands. He smiled and noted a decrease in movement in his L side. Have attempted to reach neurology for consultation but no response from workforce management coordinator at [facility]. Per prior recommendations have ordered him for Keppra 1000 mg IV x1 then 500 mg daily as his tremor improved with ativan although the patient is again not responsive after therapy. Will further obtain an MRI to assess if there is a possible infarct given noted asymmetries. Exam Vital Signs (past 8 hours): - 07/25/20 07:36 07/25/20 09:02 07/25/20 09:29 Temperature 97.5 F L Pulse Rate 85 Respiratory Rate 28 H Blood Pressure 162/69 H Pulse Oximetry 99 96 92 07/25/20 09:42 07/25/20 11:20 07/25/20 11:50 Temperature 97.6 F Pulse Rate 85 Respiratory Rate 24 26 H Blood Pressure 140/73 Pulse Oximetry 93 96 07/25/20 13:38 Temperature Pulse Rate Respiratory Rate Blood Pressure Pulse Oximetry 93 Oxygen Delivery Method CPAP Oxygen Flow Rate 3 Narrative Exam Narrative: General: Elderly male lying in bed and in no acute distress, flushed, mentation waxing and waning, somnolent but arousable at times other times obtunded, able to follow simple commands when awake and alert, confused, alert oriented to person and place only, impaired cognition unable to remember short-term memory. HEENT: Normocephalic, atraumatic. External ears without defect. Pupils equal, round, and reactive to light. Bilateral conjunctivitis resolved. Mild bilateral lid lag. Oropharynx free of erythema and cobble stoning with moist mucosa. No facial or oral lesions. Neck: Supple with full range of motion. No jugular venous distension. No lymphadenopathy or thyromegaly. Cardiovascular: Regular rate and rhythm without murmurs, rubs, or gallops appreciated. Pulmonary: Clear to auscultation bilaterally without crackles, wheezes, or rhonchi. Normal respiratory effort with no use of accessory muscles. Abdomen: Soft, bowel sounds present, nontender, nondistended. No hepatosplenomegaly or masses appreciated. Genitourinary: Foote catheter placed. No genital lesions. Extremities: No clubbing, cyanosis, or edema. Patient favors and moves right side more readily than left. Skin: Normal temperature, turgor, and texture; no rash, ulcers, or subcutaneous nodules appreciated. Neurological: Mentation waxing and waning and somnolent but arousable. Follow simple commands such as wiggling fingers and toes. Confused, alert oriented to person only, impaired cognition unable to remember short-term memory. L side not moving as well as the R and possible facial asymmetry noted on exam. Uncoordinated and nikki movements of the L wrist and hand only. Objective Labs Result Diagrams: 07/25/20 05:03 07/25/20 05:03 Labs: Laboratory Results - last 24 hr 07/25/20 07/25/20 05:03 05:03 WBC 19.1 H D RBC 5.51 Hgb 17.0 Hct 49.3 MCV 89.4 MCH 30.8 MCHC 34.4 RDW 13.5 Plt Count 205 Neut % (Auto) 84.2 H Lymph % (Auto) 5.0 L [place] % (Auto) 9.8 Eos % (Auto) 0.4 L Baso % (Auto) 0.6 Neut # (Auto) 39030 H Lymph # (Auto) 1000 L [place] # (Auto) 1900 H Eos # (Auto) 100 Baso # (Auto) 100 Sodium 137 Potassium 3.7 Chloride 99 Carbon Dioxide 30 BUN 20 Creatinine 0.96 Estimated GFR > 60.0 BUN/Creatinine Ratio 20.8 Glucose 181 H Calcium 8.4 Total Bilirubin 1.6 H Conjugated Bilirubin 0.0 Unconjugated Bilirubin 1.5 H AST 63 H ALT 119 H Alkaline Phosphatase 71 Total Protein 6.2 L Albumin 3.6 Globulin 2.6 Albumin/Globulin Ratio 1.4 Assessment & Plan Assessment & Plan narrative: Ottoniel Lewis is a 70-year-old male with a past medical history significant for hypertension, diabetes mellitus type 2, insulin using, with peripheral neuropathy, hypothyroidism, nephrolithiasis and BPH who presented to the ED with high fever and headache x3 days with increasing confusion. He remains admitted for HSV-1 encephalitis. He is on acyclovir therapy. Prognosis remains guarded. 1. Acute HSV 1 encephalitis, present on admission. Active. -Patient presented with progressive headache, high fevers, chills, nausea without vomiting, fatigue and confusion x3 days. -Infectious workup in ED was negative including: CT brain without contrast, chest x-ray, CT chest abdomen and pelvis with contrast, and urinalysis. COVID-19 negative x2. Respiratory PCR negative. ED physician attempted LP which was unsuccessful. Consulted Interventional Radiology performed fluoroscopy guided LP. -CSF PCR positive for HSV 1. CSF was consistent with viral etiology and demonstrated: Clear and colorless, WBC 216 (monos 90% and polys 10%), slightly elevated protein at 76, glucose normal 43. -CT brain without contrast did not demonstrate any acute intracranial abnormalities. -MR with and without contrast did not demonstrate any acute intracranial abnormalities on HD#1. Chronic microvascular ischemic changes present. Received Zosyn 3.375 g x 1 and ceftriaxone 2 g IV x1 in ED. Continue ceftriaxone 2 g IV every 12 hours and vancomycin with dosing per pharmacist pending CSF analysis then discontinued. -Started and continue acyclovir 10 milligrams/kilogram with 1100 mg IV every 8 hours. Will need at least 7 days of thearpy but treatment can extend as long as 21 days depending on symptoms and improvement. -Continue aggressive IV fluid hydration with D5 normal saline at 150 mL /hr. -Continue seizure precautions. -HSV 1 encephalitis carries a 20-30% mortality rate and high morbidity rate and without starting treatment within 1st 24 hours of infection patient undoubtedly will permanent neurological deficit if he survives infection. -Discussed case with Infectious Disease at [facility] who agrees with current management with acyclovir, aggressive IV fluid hydration, and supportive care. Discussed case with on-call Neurology at [place] who also agrees with current management. Neurology recommended if patient were to develop seizures or if he became completely obtunded empirically treating for seizure and loading with Keppra 1000 mg IV x1 and 500 mg IV twice daily which was started today. If patient were to decompensate could consider transfer, however, currently there is nothing further that they can offer at tertiary center. -on 07/25 patient developed possible seizure activity of his left hand and wrist and had some facial asymmetry. Improved movements with ativan but he was somnolent after. Will start keppra 1000 mg x1 and continue 500 mg BID. Repeat MRI ordered given L asymmetry. 2. Acute rhabdomyolysis, present on admission. Active. -Patient had unwitnessed fall on boat without obvious loss of consciousness or prolonged time down. -Initial creatinine kinase 6823 and trending down. Stopped trending now. Troponin was borderline at 0.035 in setting of rhabdomyolysis. Chest x-ray of poor quality shows cardiomegaly with interstitial prominence, however, pro BNP is 428 and did not show any signs of fluid overload and rather appeared dry. -Continue aggressive IV fluid hydration with D5 normal saline. 3. Acute hyponatremia secondary to dehydration, present on admission. Resolved -Initial sodium 126. Sodium level trending up now one hundred twenty-nine with IV fluid hydration. Now resolved. -Continue aggressive IV fluid hydration with D5 normal saline. -Continue to monitor sodium level daily. 4. Acute hypokalemia, present on admission. Resolved. -admission labs find a potassium of 3.3. No evidence of acidosis. -ordered KCl rider 40 mEq. Now improved. 5. Diabetes mellitus type 2, insulin using, present on admission. Stable. -Hemoglobin A1c 7.1%. -Patient usually takes Tresiba 90 units daily at bedtime. Held received but as patient is not taking in much PO intake due to encephalitis. -Continue every 6 hour blood glucose checks and medium dose correctional scale insulin. -Continue carbohydrate consistent/heart healthy diet with 1:1 feeding and feed only when alert. 6. Hypertension, chronic, present on admission. Stable. -Continue home losartan 50 mg daily. 7. Benign prostatic hypertrophy with urinary retention, chronic, present on admission. Stable. -Patient takes beta health for his prostate. He denies difficulty urinating though he has previously required catheter placement for obstruction. -Straight catheterization performed in the ED to obtain urine sample which does not appear infected. Patient continues to have waxing and waning mentation and urinary retention on bladder scan, therefore, Foote catheter placed. Continue Foote catheter management. -Started tamsulosin 0.4 mg daily. 8. Bilateral conjunctivitis, present on admission. Resolving. -Continue polymyxin eye drops 4 times daily x 7 days. 9. Hepatic steatosis, chronic, present on admission. Stable. -Diffuse hepatic steatosis on CT abdomen and pelvis. Patient has mild transaminitis. -Continue to monitor LFTs closely. 10. Aspiration event - possible aspiration pneumonia after patient was not swallowing well and reported cough. - have started zosyn on 07/25 given leukocytosis and continued fevers. Code status: Patient states his desire to be DNR which is confirmed with the patient's at bedside whom he designates to be his surrogate decision maker. VTE prophylaxis: Bilateral SCDs, heparin Disposition: Remains inpatient, anticipate at least 7 days of IV antiviral therapy at this time. He continues to improve. Will start PT/OT. Quality VTE Deep Vein Thrombosis/Pulmonary Embolism Present on Admission: No
--- NOTE | 2020-07-25 14:41 | SLP.IPNOTE ---
Per consultation with Nsg, pt remains unable to participate in therapy. Will f/u again tmw 07/26/20.
[2020-07-25] MEDS: levETIRAcetam 1,000 MG in SODIUM CHLORIDE 0.9% 100 ML 440 ML IV (14:51)
--- NOTE | 2020-07-25 15:54 | PC.NURSE ---
Shift summary: Patient largely unresponsive today. 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 Has been on 3L O2 all day, either via CPAP or nasal cannula. Cont pulse ox in place. NPO r/t LOC, HOB elevated, oral care given. Tremor/movement in LUE seemed to improve after dose of IV Lorazepam, Dr Head aware of the same. New midline IV in LUE functioning WNL. Tolerated first doses of Zosyn without s/sx adverse reaction. Off floor to MRI approx 1500, O2 turned up to 4L for transport while lying flat.
--- NOTE | 2020-07-25 22:36 | PC.NURSE ---
Addendum entered by Rayne Davis R.N. 07/25/20 22:53: Initiated seizure precautions and administered Tylenol IL as ordered PRN for axillary temp of 100.3F. Original Note: Was alerted by CNAs that patient was having bilateral seizure activity. On assessment patient was having muscle tremors bilaterally in arms and legs, more pronounced on left side. I notified Ira Sofia NP and received order of 2mg IV Ativan now. Tremors decreased but have not subsided completely. No further orders received.
[2020-07-25] MEDS: ACETAMINOPHEN 650 MG SUPP PR (22:44)
--- NOTE | 2020-07-25 23:05 | PM.EVENT ---
Event Note Date Patient Seen: 07/25/20 Time Patient Seen: 22:15 Event Note: Patient is now seizing all 4 extremities, appear to look more like deep tremors. Given ativan 2 mg iv X 1. He had a single extremity seizure this past afternoon and was giving iv keppra 1000 mg X 1 at 1400. Have a call into [facility] as [place] does not have neurology carton inspector during the night. [address] Rush Shelley, Neurologist at [facility], recommended increasing Keppra to 1500 bid since patient's renal function thinks is okay. Feels seizures are likely as a result of the aspiration pneumonia. Will consult, awaiting call from hospitalist. If accepted would go to [facility] tele w/ID and Neuro consulting. He made a comment about expectations for transfer at midnight. I reminded him and the transfer center that there was an outstanding request for a call-back at 2 pm and that the day provider had not received a call back. Patient will be accepted for an IMCU bed at [facility]. No beds currently but anticipate bed becoming available in the am. Accepting physician Dr. Blair, hospitalist.
[2020-07-26] VITALS (15 sets, daily range): BP systolic 132–160; BP diastolic 66–117; PULSE 91–139; RESP 20–40; TEMP 30.6–39.9; O2SAT 90–98
[2020-07-26] MEDS: PIPERACILLIN-TAZO 3.375 GM/50 ML FROZ.PIGGY IV ×3 (02:33→16:03)
[2020-07-26] MEDS: KETOROLAC 30 MG/ML VIAL IV (03:40)
[2020-07-26] MEDS: WATER IV ×2 (03:43→14:29)
[2020-07-26] MEDS: ACYCLOVIR IV ×2 (03:43→14:29)
[2020-07-26] MEDS: DEXTROSE 5% IV ×2 (03:43→14:29)
[2020-07-26 05:17] LABS: Add Manual Diff / Slide Review NO; Basophils Absolute Auto 0 /uL (0-100); Basophils Percent Auto 0.1 % (0-2); Eosinophils Absolute Auto 100 /uL (0-450); Eosinophils Percent Auto 0.7 % (2-4); Hematocrit 44.9 % (41-53); Hemoglobin 15.6 g/dL (13.5-17.5); Lymphocytes Absolute Auto 500 /uL (1100-4500); Lymphocytes Percent Auto 3.7 % (25-40); Mean Corpuscular HGB Conc 34.8 % (30-36); Monocytes Absolute Auto 1300 /uL (0-900); Monocytes Percent Auto 8.8 % (3-14); Neutrophils Absolute Auto 12400 /uL (1500-7000); Neutrophils Percent Auto 86.7 % (50-75); Platelet Count 197 X10^3/uL (150-400); Red Blood Cell Count 5.05 X10^6/uL (4.5-5.9); Red Cell Distribution Width 13.8 % (11.6-14.8); White Blood Cell Count 14.3 X10^3/uL (4.5-11.0)
[2020-07-26 05:27] LABS: Alanine Aminotransferase 82 IU/L (<50); Albumin 3.2 g/dL (3.5-5.0); Albumin Globulin Ratio 1.2 (1.0-2.8); Alkaline Phosphatase 69 U/L (38-126); Aspartate Aminotransferase 42 IU/L (17-59); BUN Creatinine Ratio 20.1 (6-22); Bilirubin Total 1.5 mg/dL (0.2-1.3); Bilirubin Unconjugated 1.3 mg/dL (0.0-1.1); Blood Urea Nitrogen 27 mg/dL (9-20); Calcium 8.3 mg/dL (8.4-10.2); Carbon Dioxide 28 mmol/L (22-32); Chloride 103 mmol/L (98-107); Estimated Glomerular Filt Rate 52.7 mL/min (>60); Globulin 2.6 g/dL (1.7-4.1); Glucose 165 mg/dL (80-110); HEMOLYSIS < 15 (0-50); Potassium 3.4 mmol/L (3.4-5.1); Sodium 139 mmol/L (137-145); Total Protein 5.8 g/dL (6.3-8.2)
--- NOTE | 2020-07-26 08:29 | PM.DS.1 ---
History of Present Illness History of Present Illness Date Patient Seen: 07/26/20 Time Patient Seen: 08:30 Chief complaint: Decreased loc 3 days,fever,no cough Narrative: As per SAMANTA Stern: Mr. Ottoniel Lewis is a 70-year-old male patient with a past medical history significant for insulin-dependent diabetes with neuropathy, hypertension, history of kidney stones and BPH presents to the ER with altered mental status, headache and fever. 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 The patient's symptoms began 1 week ago after being caught and rain storm for several hours after which the patient began experiencing shaking chills. The patient complained of headache and is otherwise typically stoic. He has had associated symptoms of increasing confusion which is describes activities like scrolling a cell phone screen but without a cell. Patient has had associated symptoms of body aches weakness, feeling tired having slept most of the day yesterday. Patient is diabetic and has had poor appetite and has been taking to see above but did not receive his dose today having had a low blood sugar in the 60s that was treated with oral nutrition. Patient has had no prior headaches or neurologic symptoms or seizures, no history trauma or injury, no complaints photo or phonophobia. He has not complained of neck or back pain but has had nausea without vomiting denies complaints of sinus or nasal congestion or sore throat. He has not complained of chest pain or palpitations, shortness of breath cough or wheezing. Denies complaints of abdominal pain, heartburn, diarrhea or constipation. He takes citysocializer for enlarged prostate and denies difficulty urinating. Upon arrival to the ER the patient has a temperature 103.3, heart rate of 85, blood pressure 137/63, respirations 22 saturating 95% on room air. A CT of the head is obtained which finds no intercranial pathology. A chest x-rays obtained finding cardiomyopathy with interstitial prominence. CT of the abdomen and pelvis finds hepatic steatosis, nonobstructing calculi of both kidneys without hydronephrosis, prostatomegaly. Twelve lead EKG is obtained finding a sinus rhythm with ventricular rate of 86, first-degree AV block with right bundle branch block, Q-waves in lead 2 and AVF indicative prior inferior NM, On laboratory analysis the patient has an elevated white blood cell count at 16.1 with 2700 monocytes, 8.8% lymphs and 11,900 neutrophils, hemoglobin of 14.7, hematocrit 42.2 and platelets 208. He is found to be hyponatremic 126 and hypokalemic at 3.3. His BUN is 26 and creatinine 0.87. His nonfasting glucose is 120 with an A1c 7.1.. His total bilirubin is 1.2 with an AST of 161 and ALT is 79. His lipase is 60 11 and LDH is 872. He has a D-dimer of 215. His initial lactic acid is 3.2 following fluids he has improved to 1.3. His procalcitonin is less than 0.05. His troponin is 0.035, total CK is 6823 with an MB of 38.3 for an index of 0.6, BNP is 428. TSH is 0.07 with free T4 of 1.37. An LP is obtained through interventional radiology: Opening pressures not provided, CSF is clear and colorless, wbc's are 216 with monos 90% and 10% polys, glucose is normal at 43 and total protein is elevated at 76. 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 In the ER the patient received Zosyn 3.375 g and Rocephin 2 g. Has received Tylenol 975 mg well as Toradol 15 mg. Sepsis bolus was ordered then canceled. The patient is admitted to the hospitalist service for altered mental status and possible bacterial meningitis. Discharge Providers Provider Date of admission: 07/20/20 15:57 Consults: 07/20/20 22:04 Consult to Discharge Planning Routine Comment: Consult to Physical Therapy Evaluate & Treat Comment: Meningitis, weakness Physician Instructions: Evaluate and Treat 07/20/20 22:11 Consult to Respiratory Therapy Evaluate & Treat Comment: Home CPAP may use own device. Physician Instructions: Evaluate and treat 07/21/20 09:07 Consult to Speech Therapy Evaluate & Treat Comment: patient pocketing food Physician Instructions: Evaluate and treat 07/21/20 09:08 Consult to Occupational Therapy Evaluate & Treat Comment: weakness, lack of coordination Physician Instructions: Evaluate and treat 07/22/20 23:01 Consult to Dietitian, Adult Routine Comment: Reason For Exam: decreased intake 07/23/20 11:04 Consult to Occupational Therapy Evaluate & Treat Comment: Physician Instructions: Evaluate and treat Consult to Physical Therapy Evaluate & Treat Comment: Physician Instructions: Evaluate and Treat Discharge provider: Roberto Carlos Head DO Summary Hospital Course Discharge Diagnosis: Please see hospital course by problem list noted below. Hospital Course: Ottoniel Lewis is a 70-year-old male with a past medical history significant for hypertension, diabetes mellitus type 2, insulin using, with peripheral neuropathy, hypothyroidism, nephrolithiasis and BPH who presented to the ED with high fever and headache x3 days with increasing confusion. He remains admitted for HSV-1 encephalitis. He is on acyclovir therapy. Prognosis remains guarded. 1. Acute HSV 1 encephalitis, present on admission. Active. -Patient presented with progressive headache, high fevers, chills, nausea without vomiting, fatigue and confusion x3 days. -Infectious workup in ED was negative including: CT brain without contrast, chest x-ray, CT chest abdomen and pelvis with contrast, and urinalysis. COVID-19 negative x2. Respiratory PCR negative. ED physician attempted LP which was unsuccessful. Consulted Interventional Radiology performed fluoroscopy guided LP. -CSF PCR positive for HSV 1. CSF was consistent with viral etiology and demonstrated: Clear and colorless, WBC 216 (monos 90% and polys 10%), slightly elevated protein at 76, glucose normal 43. -CT brain without contrast did not demonstrate any acute intracranial abnormalities. -MR brain with and without contrast did not demonstrate any acute intracranial abnormalities on HD#1. Chronic microvascular ischemic changes present. Received Zosyn 3.375 g x 1 and ceftriaxone 2 g IV x1 in ED. Continued on ceftriaxone 2 g IV every 12 hours and vancomycin with dosing per pharmacist initially pending CSF analysis then discontinued after results. -Started and continued acyclovir 10 milligrams/kilogram with 1100 mg IV every 8 hours. Will need at least 7 days of thearpy but treatment can extend as long as 21 days depending on symptoms and improvement per outside ID consultation over the phone as noted below. -Continued aggressive IV fluid hydration with D5 normal saline at 150 mL /hr. -HSV 1 encephalitis carries a 20-30% mortality rate and high morbidity rate and without starting treatment within 1st 24 hours of infection patient undoubtedly will permanent neurological deficit if he survives infection. -Discussed case with Infectious Disease at [facility] initially who agreed with initial management with acyclovir, aggressive IV fluid hydration, and supportive care. Discussed case with on-call Neurology on HD#1 at [facility] who also agreed with current management. Neurology recommended if patient were to develop seizures or if he became completely obtunded empirically treating for seizure and loading with Keppra 1000 mg IV x1 and 500 mg IV twice daily. -on 07/25 patient developed possible seizure activity of his left hand and wrist and had some facial asymmetry. rhythmic movements and jerking activity improved with ativan but he was somnolent after. Started keppra 1000 mg x1 and continued 500 mg BID initially and repeat MRI was ordered. -repeat MRI 07/25 did not show acute infarct but now showing Abnormal increased T2 signal involving the right temporal lobe including hippocampus, right insula and portion of the right frontal lobe compatible with port history of herpes encephalitis -neurology consulted again overnight of 07/26, recommended increasing keppra to 1500 mg BID. Transfer to [facility] accepted pending bed availability. Discussed with patient's reguarding benefits of transfer and risks. She agreed with transfer. -placed NG tube today for nutrition. 2. Acute rhabdomyolysis, present on admission. Active. -Patient had unwitnessed fall on boat without obvious loss of consciousness or prolonged time down. -Initial creatinine kinase 6823 and trending down. Stopped trending now. Troponin was borderline at 0.035 in setting of rhabdomyolysis. Chest x-ray of poor quality shows cardiomegaly with interstitial prominence, however, pro BNP is 428 and did not show any signs of fluid overload and rather appeared dry. -Continue aggressive IV fluid hydration with D5 normal saline. 3. Acute hyponatremia secondary to dehydration, present on admission. Resolved -Initial sodium 126. Sodium level trending up now one hundred twenty-nine with IV fluid hydration. Now resolved. -Continue aggressive IV fluid hydration with D5 normal saline. -Continue to monitor sodium level daily. 4. Acute hypokalemia, present on admission. Resolved. -admission labs find a potassium of 3.3. No evidence of acidosis. -ordered KCl rider 40 mEq. Now improved. 5. Diabetes mellitus type 2, insulin using, present on admission. Stable. -Hemoglobin A1c 7.1%. -Patient usually takes Tresiba 90 units daily at bedtime. Held received but as patient is not taking in much PO intake due to encephalitis. -Continue every 6 hour blood glucose checks and medium dose correctional scale insulin. -Continue carbohydrate consistent/heart healthy diet with 1:1 feeding and feed only when alert. 6. Hypertension, chronic, present on admission. Stable. -Continue home losartan 50 mg daily. 7. Benign prostatic hypertrophy with urinary retention, chronic, present on admission. Stable. -Patient takes beta health for his prostate. He denies difficulty urinating though he has previously required catheter placement for obstruction. -Straight catheterization performed in the ED to obtain urine sample which does not appear infected. Patient continues to have waxing and waning mentation and urinary retention on bladder scan, therefore, Foote catheter placed. Continue Foote catheter management. -Started tamsulosin 0.4 mg daily. 8. Bilateral conjunctivitis, present on admission. Resolving. -Continue polymyxin eye drops 4 times daily x 7 days. 9. Hepatic steatosis, chronic, present on admission. Stable. -Diffuse hepatic steatosis on CT abdomen and pelvis. Patient has mild transaminitis. -Continue to monitor LFTs closely. 10. Aspiration event - possible aspiration pneumonia after patient was not swallowing well and reported cough. - have started zosyn on 07/25 given leukocytosis and continued fevers. Code status: Patient states his desire to be DNR which is confirmed with the patient's at bedside whom he designates to be his surrogate decision maker. They had a family meeting and at least for now wished for continued nutrition via NG tube. Family and spouse aware of grave condition and possibility of permanent deficits. VTE prophylaxis: Bilateral SCDs, heparin Disposition: accepted to [facility] for higher level of care. Exam Vital Signs (past 8 hours): - 07/26/20 00:59 07/26/20 02:15 07/26/20 04:00 Temperature 100.3 F H 100.0 F H Pulse Rate 103 H 101 H Respiratory Rate 24 28 H Blood Pressure 135/79 153/99 H Pulse Oximetry 98 90 L 90 L Oxygen Delivery Method Nasal Cannula,CPAP Oxygen Flow Rate 5 Narrative Exam Narrative: General: Elderly male lying in bed and in no acute distress, flushed, mentation waxing and waning, somnolent but arousable at times other times obtunded, able to follow simple commands when awake and alert, confused, alert oriented to person and place only, impaired cognition unable to remember short-term memory. HEENT: Normocephalic, atraumatic. External ears without defect. Pupils equal, round, and reactive to light. Bilateral conjunctivitis resolved. Mild bilateral lid lag. Oropharynx free of erythema and cobble stoning with moist mucosa. No facial or oral lesions. Neck: Supple with full range of motion. No jugular venous distension. No lymphadenopathy or thyromegaly. Cardiovascular: Regular rate and rhythm without murmurs, rubs, or gallops appreciated. Pulmonary: Clear to auscultation bilaterally without crackles, wheezes, or rhonchi. Normal respiratory effort with no use of accessory muscles. Abdomen: Soft, bowel sounds present, nontender, nondistended. No hepatosplenomegaly or masses appreciated. Genitourinary: Foote catheter placed. No genital lesions. Extremities: No clubbing, cyanosis, or edema. Patient favors and moves right side more readily than left. Skin: Normal temperature, turgor, and texture; no rash, ulcers, or subcutaneous nodules appreciated. Neurological: Mentation waxing and waning and somnolent but arousable. Follow simple commands such as wiggling fingers and toes. Confused, alert oriented to person only, impaired cognition unable to remember short-term memory. L side not moving as well as the R and possible facial asymmetry noted on exam. Uncoordinated and nikki movements of the L wrist and hand only. Objective Labs Result Diagrams: 07/26/20 04:58 07/26/20 04:58 Labs: Laboratory Results - last 24 hr 07/26/20 07/26/20 04:58 04:58 WBC 14.3 H RBC 5.05 Hgb 15.6 Hct 44.9 MCV 89.0 MCH 31.0 MCHC 34.8 RDW 13.8 Plt Count 197 Neut % (Auto) 86.7 H Lymph % (Auto) 3.7 L [place] % (Auto) 8.8 Eos % (Auto) 0.7 L Baso % (Auto) 0.1 Neut # (Auto) 33350 H Lymph # (Auto) 500 L [place] # (Auto) 1300 H Eos # (Auto) 100 Baso # (Auto) 0 Sodium 139 Potassium 3.4 Chloride 103 Carbon Dioxide 28 BUN 27 H Creatinine 1.34 H Estimated GFR 52.7 L BUN/Creatinine Ratio 20.1 Glucose 165 H Calcium 8.3 L Total Bilirubin 1.5 H Conjugated Bilirubin 0.0 Unconjugated Bilirubin 1.3 H AST 42 ALT 82 H Alkaline Phosphatase 69 Total Protein 5.8 L Albumin 3.2 L Globulin 2.6 Albumin/Globulin Ratio 1.2 Discharge Plan Discharge orders & Medications Prescriptions: No Action glimepiride 2 mg Tablet 2 mg PO QAM RF: 0 glimepiride 4 mg Tablet 4 mg PO BEDTIME RF: 0 losartan 50 mg Tablet 50 mg PO BID RF: 0 levothyroxine 137 mcg Tablet 137 mcg PO DAILY RF: 0 Tresiba FlexTouch U-200 200 unit/mL (3 mL) Insulin Pen 90 unit SUBCUT BEDTIME RF: 0 Quality VTE Deep Vein Thrombosis/Pulmonary Embolism Present on Admission: No
[2020-07-26] MEDS: ACETAMINOPHEN 650 MG SUPP PR ×2 (09:10→16:02)
--- NOTE | 2020-07-26 09:10 | SLP.IPNOTE ---
Checked with nursing re: pt status. Pt had difficult night and was medicated for seizures. Pt not available for ST at this time. Possible transfer later today. Will check with nursing later this morning.
[2020-07-26] MEDS: HEPARIN 5,000 UNIT/ML VIAL 5000 UNIT SUBCUT (10:14)
[2020-07-26] MEDS: DEXTROSE 5%-0.45% NS 1,000 ML 50 ML IV (10:16)
[2020-07-26] MEDS: PANTOPRAZOLE 40 MG VIAL IV (10:18)
[2020-07-26] MEDS: SODIUM CHLORIDE 0.9% FLUSH 10 ML IV (10:20)
[2020-07-26] MEDS: POLYMYXIN B SULF/TRIMETH OPHTH 10 ML 1 DROPS EYE-BOTH ×2 (10:21→14:31)
--- NOTE | 2020-07-26 10:23 | PC.NURSE ---
Addendum entered by Desiree Palacios R.N. 07/27/20 07:48: 1400-NG tube placed by Dr Head, Chest xray obtained to confirm placement. Noted RR and WOB increasing. CPAP replaced with 4L bleed in. Unilateral movement/tremors noted to RUE. Notified Dr Head. IV Ativan given as these began to worsen over the next 30 minutes. WOB continues to increase. HOB elevated. Original Note: Am shift Pt remains somnolent, weak response with sternal rub. at bedside and updated about seizure like activity overnight and potential transfer to [facility]. unaware of these changes, expressed some concern about not being called overnight for an update. Dr Head into update and discuss POC. is unsure of proceeding with comfort care or transfer to [facility]. BA active and seizure pads in place.
--- NOTE | 2020-07-26 10:40 | PT-IP ANOTE ---
INS[employer]OR [employer] discussed with nursing patient is ok to assess working with therapy. RN stated pt has been accepted to transfer to [facility] but no bed available at this time. INS[employer] attempted to work with patient, unable to arouse x2, discussed with on 2nd attempt and stated will try to see in afternoon if able when patient is awake.
--- NOTE | 2020-07-26 11:26 | CM.DPC ---
DCP Likely Hospital Transfer Per MD, pt's stability worsened overnight with new seizure activity. Pt still unable to work with PT/OT over the past couple days due to inability to remain responsive and has been on 4L oxygen. PT/OT not appropriate at this time and MD agreeable with cancelling orders at this time. Pt has been accepted at [facility] last night but awaiting bed availability. MD updating spouse on [facility] acceptance and spouse has been unsure if she would like pt to have hospital transfer vs changing pt to comfort care. MD discussed benefit of Neurology and ID MD consult/oversight at [facility] before making change to comfort measures only. Plan: SW to follow closely for bed availability at [facility] for transfer vs pt remaining here and changed to comfort measures after further bedside discussion with MD and spouse. Deisi Fernandez MSW
[2020-07-26] MEDS: INSULIN ASPART 100 UNIT/ML INSULN PEN SUBCUT (12:50)
[2020-07-26] MEDS: levETIRAcetam 1,500 MG in SODIUM CHLORIDE 0.9% 100 ML 420 ML IV (12:50)
--- NOTE | 2020-07-26 13:29 | DIET.PN ---
Dietary Progress Note Assessment: 70y M being treated for HSV-1 found to be seizing last night so made NPO. Pt awaiting transfer to [facility] for neuro care. Pt had reduced appetite and PO intake prior to admission secondary to confusion, fever. Pt was consuming 75% meals when awake per family during first part of hospital stay, but POs have dwindled to now NPO status. Pts BGs have been elevated 110-204, pt receiving D5w via IVF. HT: 187.9cm WT: 108.2kg BMI: 30.6 Labs: WBC 14.3 H, BUN 27 H, Cr 1.34 H, eGFR 52.7 L Nutrition Diagnosis: insufficient protein calorie intake r/t pt not cleared for oral intake aeb pt NPO secondary to seizures and non-alert, pt previously able to consume 75% EERs when alert, pt family reports low intake prior to admission secondary to confusion and fever. Interventions: 1. If hospitalist and family desire nutrition support, recc continuous NG enteral feeding of Glucerna 1.5 starting at 20mL/h for first 12h increasing by 10mL/h q6h as tolerated up to goal of 50mL/hr c 350mL free water flushes q4h if not receiving IVF (or adjust accordingly). Head of bed elevated >30 degrees, hold feeds if residuals >500mL. Goal provides 1800kcal, 99g PRO, 160g CHO, 911mL feed water, and 2100mL free water flushes for total of 3,011mL total fluids. Diet Order: NPO EER: 1800kcal (20kcal/kg), 99g PRO (1.1g/kg), 3011mL fluids (34mL/kg) Monitoring/Evaluations: following daily
--- NOTE | 2020-07-26 13:46 | SLP.IPNOTE ---
Care management informed ST that patient will no longer need services at this time. Plan to discharge patient from services. - Yanira Kumar MS, CF-POWER MANAGER
--- NOTE | 2020-07-26 13:56 | PT-IP ANOTE ---
Per nursing to OT, pt does not need to be seen for therapy today being discharged, was accepted to [facility] and waiting on open bed for transfer.
--- NOTE | 2020-07-26 14:00 | OT.IPNOTE ---
Attempted to see pt again for OT eval today and again pt not medically appropriately to be seen at this time. In addition now looking to transfer to [facility] for higher care. Discharge pt from OT services.
--- NOTE | 2020-07-26 14:11 | DI.RAD.S_ITS ---
PROCEDURE: XR CHEST 1V INDICATIONS: NG tube placement TECHNIQUE: One view of the chest was acquired. COMPARISON: [facility], , XR CHEST 1V, 07/25/2020, 8:20. FINDINGS: Surgical changes and devices: Nasogastric tube is present. The tip and side hole are in the proximal stomach and the tip is directed right lateral as expected. There are surgical clips in the gallbladder fossa. Lungs and pleura: Lung volumes are low. No pleural effusions. Mediastinum: Mediastinal contours appear normal. Heart size is mildly enlarged, stable. Bones and chest wall: No suspicious bony lesions. Overlying soft tissues appear unremarkable. IMPRESSION: 1. Adequate placement of NG tube. 2. Stable cardiomegaly. Dictated by: Amber Suresh M.D. on 07/26/2020 at 14:01 Approved by: Amber Suresh M.D. on 07/26/2020 at 14:02
[2020-07-26] MEDS: LORazepam 2 MG/ML INJ ×2 (14:48→17:40)
--- NOTE | 2020-07-26 15:18 | PT-IP ANOTE ---
Nursing reported patient is not medically appropriate at this time for therapy, stated is not alert and appropriate responses when awake, has been difficulty arousing for nursing needs at this time. Nursing recommended discharge patient from therapy. Nursing reported pt has been accepted to [facility] and awaiting an available bed for transfer.
--- NOTE | 2020-07-26 15:59 | PT-IP ANOTE ---
Nursing reported pt is not responsive or alert enough to participate with PT, recommending discharge PT orders due to decreased in activity level, not being able to participate since eval on 07/23/20. SENIOR SCRUM MASTER discussed with supervising PT decreased in status and activity level. Pt has been accepted to [facility] and awaiting an open bed for transfer. Supervising PT will place discharge orders today.
--- NOTE | 2020-07-26 16:26 | PC.NURSE ---
Addendum entered by Grace Dhillon R.N. 07/26/20 16:55: 1645-12 lead EKG done. Bipap to be removed, and patient to be kept comfortable. Original Note: 1530- Patient working hard to breath. Repiratory notified to NT suction. Lung sounds are coarse and saturation on CPap with 3l bleed is 88-90. Heart rate is 140. Respiratory rate in the 40's. Dr. Head asked to come see patient. Discussion at bedside with regarding patients respiratory distress and clinical options. Patient moved to 226 for implementation of Bipap. 1550- patient in 226. Asael from respiratiory here and Bipap has been implemented. 1600- Foote catheter placed, urine clear yellow. Patient tolerated procedure well. 1615- Patient has axillary temp of 103.4. Dr. Head aware. Tylenol supp given per order.
[2020-07-26] MEDS: MORPHINE 4 MG/ML INJ (17:40)
--- NOTE | 2020-07-26 17:53 | P.PN_ITS ---
Subjective Subjective Date Patient Seen: 07/26/20 Time Patient Seen: 17:53 Interval history: Ottoniel Lewis is a 70-year-old male with a past medical history significant for hypertension, diabetes mellitus type 2, insulin using, with peripheral neuropathy, hypothyroidism, nephrolithiasis and BPH who presented to the ED with high fever and headache x3 days with increasing confusion. He is admitted with HSV-1 encephalitis. Yesterday he was started on antibiotics for possible aspiration event. He continued to spike fevers. Yesterday he also developed seizure-like activity initially of his left upper extremity. He also showed possible evidence of a stroke. MRI did not show any evidence of acute infarct but did show worsening inflammation of the right side of his brain consistent with known HSV encephalitis. Overnight he developed more seizure activity in all extremities. Neurology was reconsulted who recommended increased dose of Keppra, and was a ccepted for transfer to [facility], however they did not have a bed and continued to not have availability throughout today. Patient's condition ultimately worsened and he again developed more seizure-like activity which improved with IV Ativan. Later in the evening he developed increased work of breathing and desaturated. He was briefly put on BiPAP which did appear to make him more comfortable, however he became increasingly tachycardic and was found to be febrile to 103. Given worsening condition, an extensive discussion with family, decision was made to proceed with comfort care. Family is currently at bedside, supplemental oxygen has been removed, and will continue antiseizure therapy as well as pain control and anxiety medications as needed to keep him comfortable. Exam Vital Signs (past 8 hours): - 07/26/20 10:00 07/26/20 12:40 07/26/20 15:10 Temperature 99.3 F 101.8 F H Pulse Rate 100 H 139 H Respiratory Rate 31 H 26 H Blood Pressure 145/88 H 160/117 H Pulse Oximetry 94 93 91 07/26/20 15:15 07/26/20 15:44 07/26/20 16:02 Temperature 100.4 F H 103.4 F H Pulse Rate Respiratory Rate Blood Pressure 138/74 Pulse Oximetry 07/26/20 16:15 07/26/20 16:37 07/26/20 16:52 Temperature 103.8 F H 99.8 F H Pulse Rate Respiratory Rate Blood Pressure Pulse Oximetry 94 07/26/20 17:11 Temperature 99.8 F H Pulse Rate Respiratory Rate Blood Pressure Pulse Oximetry Fraction of Inspired Oxygen 60 Oxygen Delivery Method BiPAP Oxygen Flow Rate 60 Narrative Exam Narrative: General: Elderly male lying in bed and in no acute distress, flushed, mentation waxing and waning, somnolent but arousable at times other times obtunded, able to follow simple commands when awake and alert, confused, alert oriented to person and place only, impaired cognition unable to remember short-term memory. HEENT: Normocephalic, atraumatic. External ears without defect. Pupils equal, round, and reactive to light. Bilateral conjunctivitis resolved. Mild bilateral lid lag. Oropharynx free of erythema and cobble stoning with moist mucosa. No facial or oral lesions. Neck: Supple with full range of motion. No jugular venous distension. No lymphadenopathy or thyromegaly. Cardiovascular: Regular rate and rhythm without murmurs, rubs, or gallops appreciated. Pulmonary: Clear to auscultation bilaterally without crackles, wheezes, or rhonchi. Normal respiratory effort with no use of accessory muscles. Abdomen: Soft, bowel sounds present, nontender, nondistended. No hepatosplenomegaly or masses appreciated. Genitourinary: Foote catheter placed. No genital lesions. Extremities: No clubbing, cyanosis, or edema. Patient favors and moves right side more readily than left. Skin: Normal temperature, turgor, and texture; no rash, ulcers, or subcutaneous nodules appreciated. Neurological: Mentation waxing and waning and somnolent but arousable. Follow simple commands such as wiggling fingers and toes. Confused, alert oriented to person only, impaired cognition unable to remember short-term memory. L side not moving as well as the R and possible facial asymmetry noted on exam. Uncoordinated and nikki movements of the L wrist and hand only. Objective Labs Result Diagrams: 07/26/20 04:58 07/26/20 04:58 Labs: Laboratory Results - last 24 hr 07/26/20 07/26/20 04:58 04:58 WBC 14.3 H RBC 5.05 Hgb 15.6 Hct 44.9 MCV 89.0 MCH 31.0 MCHC 34.8 RDW 13.8 Plt Count 197 Neut % (Auto) 86.7 H Lymph % (Auto) 3.7 L [place] % (Auto) 8.8 Eos % (Auto) 0.7 L Baso % (Auto) 0.1 Neut # (Auto) 72759 H Lymph # (Auto) 500 L [place] # (Auto) 1300 H Eos # (Auto) 100 Baso # (Auto) 0 Sodium 139 Potassium 3.4 Chloride 103 Carbon Dioxide 28 BUN 27 H Creatinine 1.34 H Estimated GFR 52.7 L BUN/Creatinine Ratio 20.1 Glucose 165 H Calcium 8.3 L Total Bilirubin 1.5 H Conjugated Bilirubin 0.0 Unconjugated Bilirubin 1.3 H AST 42 ALT 82 H Alkaline Phosphatase 69 Total Protein 5.8 L Albumin 3.2 L Globulin 2.6 Albumin/Globulin Ratio 1.2 Assessment & Plan Assessment & Plan narrative: Ottoniel Lewis is a 70-year-old male with a past medical history significant for hypertension, diabetes mellitus type 2, insulin using, with peripheral neuropathy, hypothyroidism, nephrolithiasis and BPH who presented to the ED with high fever and headache x3 days with increasing confusion. He was admitted for HSV encephalitis. Patient initially appeared to be improving, however ultimately developed worsening fevers and seizure act ivity. This evening family wished to deescalate his care and focus on comfort. 1. Acute HSV 1 encephalitis, present on admission. Active. -Patient presented with progressive headache, high fevers, chills, nausea without vomiting, fatigue and confusion x3 days. -Infectious workup in ED was negative including: CT brain without contrast, chest x-ray, CT chest abdomen and pelvis with contrast, and urinalysis. COVID- 19 negative x2. Respiratory PCR negative. ED physician attempted LP which was unsuccessful. Consulted Interventional Radiology performed fluoroscopy guided LP. -CSF PCR positive for HSV 1. CSF was consistent with viral etiology and demonstrated: Clear and colorless, WBC 216 (monos 90% and polys 10%), slightly elevated protein at 76, glucose normal 43. -CT brain without contrast did not demonstrate any acute intracranial abnormalities. -MR with and without contrast did not demonstrate any acute intracranial abnormalities on HD#1. Chronic microvascular ischemic changes present. -Received Zosyn 3.375 g x 1 and ceftriaxone 2 g IV x1 in ED. Continue ceftriaxone 2 g IV every 12 hours and vancomycin with dosing per pharmacist pending CSF analysis then discontinued. -Started and continue acyclovir 10 milligrams/kilogram with 1100 mg IV every 8 hours. Will need at least 7 days of thearpy but treatment can extend as long as 21 days depending on symptoms and improvement. -Continue aggressive IV fluid hydration with D5 normal saline at 150 mL /hr. -Continue seizure precautions. -HSV 1 encephalitis carries a 20-30% mortality rate and high morbidity rate and without starting treatment within 1st 24 hours of infection patient undoubtedly will permanent neurological deficit if he survives infection. -Discussed case with Infectious Disease at [facility] who agrees with current management with acyclovir, aggressive IV fluid hydration, and supportive care. Discussed case with on-call Neurology at [facility] who also agrees with current management. Neurology recommended if patient were to develop seizures or if he became completely obtunded empirically treating for seizure and loading with Keppra 1000 mg IV x1 and 500 mg IV twice daily which was started today. If patient were to decompensate could consider transfer, however, currently there is nothing further that they can offer at tertiary center. -on 07/25 patient developed possible seizure activity of his left hand and wrist and had some facial asymmetry. rhythmic movements and jerking activity improved with ativan but he was somnolent after. Started keppra 1000 mg x1 and continued 500 mg BID initially and repeat MRI was ordered. -repeat MRI 07/25 did not show acute infarct but now showing Abnormal increased T2 signal involving the right temporal lobe including hippocampus, right insula and portion of the right frontal lobe compatible with port history of herpes encephalitis -neurology consulted again overnight of 07/26, recommended increasing keppra to 1500 mg BID. Transfer to [facility] accepted pending bed availability. Discussed with patient's reguarding benefits of transfer and risks. She agreed with transfer initially. Patient remained stable for a brief period of t zahra but then again developed seizure activity, tachypnea, and tachycardia. He became short of breath with worsening secretions. He was briefly placed on BiPAP therapy and moved to the ICU. Vital signs noted a fever of greater than 103. He this improved with rectal Tylenol, however the patient appeared short of breath and uncomfortable. Decision at that time was to deescalate care and remove his BiPAP mask given poor prognosis. Decision made with family at the bedside and wanted to proceed with keeping the patient comfortable. 2. Acute rhabdomyolysis, present on admission. Improved. -Patient had unwitnessed fall on boat without obvious loss of consciousness or prolonged time down. -Initial creatinine kinase 6823 and trending down. Stopped trending now. Troponin was borderline at 0.035 in setting of rhabdomyolysis. Chest x-ray of poor quality shows cardiomegaly with interstitial prominence, however, pro BNP is 428 and did not show any signs of fluid overload and rather appeared dry. -Continued on aggressive IV fluid hydration with D5 normal saline until decision made to de-escalate care. 3. Acute hyponatremia secondary to dehydration, present on admission. Resolved -Initial sodium 126. Sodium level trending up now one hundred twenty-nine with IV fluid hydration. Now resolved. -Continue aggressive IV fluid hydration with D5 normal saline. -Continue to monitor sodium level daily. 4. Acute hypokalemia, present on admission. Resolved. -admission labs find a potassium of 3.3. No evidence of acidosis. -ordered KCl rider 40 mEq. Now improved. 5. Diabetes mellitus type 2, insulin using, present on admission. Stable. -Hemoglobin A1c 7.1%. -Patient usually takes Tresiba 90 units daily at bedtime. Held received but as patient is not taking in much PO intake due to encephalitis. He was continued on sliding scale insulin until decision made for primary focus of comfort. -will hold on further finger checks at this time given comfort goals. 6. Hypertension, chronic, present on admission. Stable. -Continued on home losartan 50 mg daily until decision made to focus on comfort. 7. Benign prostatic hypertrophy with urinary retention, chronic, present on admission. Stable. -Patient takes beta health for his prostate. He denies difficulty urinating though he has previously required catheter placement for obstruction. -Straight catheterization performed in the ED to obtain urine sample which does not appear infected. Patient continues to have waxing and waning mentation and urinary retention on bladder scan, therefore, Foote catheter placed. Continue Foote catheter management. -Started tamsulosin 0.4 mg daily which is now discontinued. 8. Bilateral conjunctivitis, present on admission. Resolving. -Continue polymyxin eye drops 4 times daily x 7 days. 9. Hepatic steatosis, chronic, present on admission. Stable. -Diffuse hepatic steatosis on CT abdomen and pelvis. Patient has mild transaminitis which has generally trended down. 10. Aspiration event - possible aspiration pneumonia after patient was not swallowing well and reported cough. - had started zosyn on 07/25 given leukocytosis and continued fevers but will now discontinue based on family wishes. Code status: Patient states his desire to be DNR which is confirmed with the patient's at bedside whom he designates to be his surrogate decision maker. Decision made to focus on comfort at this time. VTE prophylaxis: Bilateral SCDs, heparin Disposition: Given worsening neurological status and infection, his appears imminent at this time. Quality VTE Deep Vein Thrombosis/Pulmonary Embolism Present on Admission: No
[2020-07-26] MEDS: SCOPOLAMINE 1 PATCH TOP (18:13)
[2020-07-26] MEDS: MORPHINE 4 MG/ML INJ IV ×2 (18:43→20:45)
[2020-07-26] MEDS: LORazepam 2 MG/ML INJ IV ×2 (19:05→21:58)
[2020-07-27] VITALS (14 sets, daily range): BP systolic 163; BP diastolic 77; PULSE 90–111; RESP 24–33; TEMP 37.1–39.9; O2SAT 78–92
--- NOTE | 2020-07-27 03:34 | PC.NURSE ---
0000 Talked with family regarding their wishes for repositioning of patient and nursing available to turn, medicate, and give patient comfort measures as needed. Family receptive and express wishes for not repositioning patient at this time and using Morphine and Lorazepam as needed. Itzel states patient's breathing is much more relaxed compared to previous shift and no meds needed currently. Pt is not responding to verbal stimuli or families voices. RR @ 30. O2 sats 79% on RA. HR AFib/flutter, RVR with occasional PVCS. Pt warm to touch. No discoloration of skin noted. Face ruddly with no mottling of extremities.
--- NOTE | 2020-07-27 05:14 | PC.NURSE ---
Family remains at bedside. Pt converted to SR, First Degree AV Block. HR 80-90. RR 21-25, considerably labored. Pt remains unresponsive. states patient appears much more comfortable compared to yesterday afternoon. Discussed with family that medications can be given for pain, work of breathing or anxiety as they feel patient needs it, RA sats 88%. IV TKO for medications prn. Ira Sofia notified of patients conversion from AFib to SR with first degree AV Block and family holding all routine meds. Discussed that no Morphine or Ativan has been given up to this point. Family is giving patient oral care and declines offer of repositioning patient.
[2020-07-27] MEDS: MORPHINE 2 MG/ML INJ IV (09:32)
[2020-07-27] MEDS: LORazepam 2 MG/ML INJ IV ×6 (09:33→23:58)
--- NOTE | 2020-07-27 09:42 | PC.NURSE ---
Addendum entered by Desiree Palacios R.N. 07/27/20 15:17: Premedicated prior to turning patient and providing care. Morphine and Ativan, Pt is nonresponsive, moaning occasionally. Family educated about continued care. TKO to midline. Original Note: Am shift Pt is on comfort care and has been resting quietly overnight, Family updated about POC and what to expect with dying process. Family expresses desire for patient to be comfortable over anything. Increased secretions noted with care this AM, Atropine gtt ordered. Scop patch in place, R ear.
[2020-07-27] MEDS: ATROPINE 1% OPHTH 2 DROPS SL (11:00)
[2020-07-27] MEDS: levETIRAcetam 1,500 MG in SODIUM CHLORIDE 0.9% 100 ML 420 ML IV (13:00)
[2020-07-27] MEDS: MORPHINE 4 MG/ML INJ IV ×6 (13:30→23:58)
--- NOTE | 2020-07-27 16:49 | PM.PN.1 ---
Subjective Subjective Date Patient Seen: 07/27/20 Interval history: Ottoniel Lewis is a 70-year-old male with a past medical history significant for hypertension, diabetes mellitus type 2, insulin using, with peripheral neuropathy, hypothyroidism, nephrolithiasis and BPH who presented to the ED with high fever and headache x3 days with increasing confusion and found to have HSV 1 encephalitis. Patient initially appeared to be improving, however ultimately developed worsening fevers and seizure activity. This evening family wished to deescalate his care and focus on comfort. The patient is lying in bed obtunded and comatose. He appears comfortable. He is slightly flushed. His family is at bedside including his Itzel and his daughter Rochelle and all questions were answered. Patient appears to be actively dying. Exam Vital Signs (past 8 hours): - 07/27/20 09:12 07/27/20 15:20 Temperature 99.7 F H 100.5 F H Pulse Rate 97 H Respiratory Rate 33 H Blood Pressure 163/77 H Pulse Oximetry 92 Fraction of Inspired Oxygen 60 Oxygen Delivery Method Nasal Cannula Oxygen Flow Rate 0 Narrative Exam Narrative: General: Elderly male lying in bed, obtunded and comatose, appears to be actively dying. HEENT: Normocephalic, atraumatic. No facial lesions. Neck: No lymphadenopathy or thyromegaly. Cardiovascular: Regular rhythm, tachycardic, without murmurs, rubs, or gallops appreciated. Pulmonary: Coarse lung sounds throughout. Abdomen: Soft, bowel sounds hypoactive, nondistended. Genitourinary: Foote catheter placed. No genital lesions. Extremities: No clubbing, cyanosis, or edema. Skin: Normal temperature, turgor, and texture; no rash, ulcers, or subcutaneous nodules appreciated. Neurological: Obtunded and comatose. Objective Labs Result Diagrams: 07/26/20 04:58 07/26/20 04:58 Assessment & Plan Assessment & Plan narrative: Ottoniel Lewis is a 70-year-old male with a past medical history significant for hypertension, diabetes mellitus type 2, insulin using, with peripheral neuropathy, hypothyroidism, nephrolithiasis and BPH who presented to the ED with high fever and headache x3 days with increasing confusion and found to have HSV 1 encephalitis. Patient initially appeared to be improving, however ultimately developed worsening fevers and seizure activity. This evening family wished to deescalate his care and focus on comfort. 1. End of life care. -Patient's spouse and DPOA may decision to withdrawal medical interventions and pursue palliative care only due to continued decompensation and declined. -Continue Foote catheter for comfort. -Continue comfort care medications including: Acetaminophen 975 mg NE every 6 hours for fever and mild pain, morphine 2 mg every 4 hours as needed for pain or discomfort, lorazepam 2 mg IV every 1 hour as needed for anxiety or agitation, ondansetron 4 mg every 8 hours as needed for nausea or vomiting, scopolamine patch every 72 hours and atropine drops 2 drops every 2 hours as needed for excessive secretions. 2. Acute HSV 1 encephalitis, present on admission. Active. -Patient presented with progressive headache, high fevers, chills, nausea without vomiting, fatigue and confusion x3 days. -Infectious workup in ED was negative including: CT brain without contrast, chest x-ray, CT chest abdomen and pelvis with contrast, and urinalysis. COVID-19 negative x2. Respiratory PCR negative. ED physician attempted LP which was unsuccessful. Consulted Interventional Radiology performed fluoroscopy guided LP. -CSF PCR positive for HSV 1. CSF was consistent with viral etiology and demonstrated: Clear and colorless, WBC 216 (monos 90% and polys 10%), slightly elevated protein at 76, glucose normal 43. -CT brain without contrast did not demonstrate any acute intracranial abnormalities. -Initial MRI brain with and without contrast did not demonstrate any acute intracranial abnormalities with noted chronic microvascular ischemic changes present. -Received Zosyn 3.375 g x 1 and ceftriaxone 2 g IV x1 in ED. Continued ceftriaxone 2 g IV every 12 hours and vancomycin with dosing per pharmacist pending CSF analysis then discontinued. -Started and continued acyclovir 10 mg/kg with 1100 mg IV every 8 hours and aggressive IV fluid hydration until decision was made to withdrawal all medical interventions and pursue palliative care only. -Continued seizure precautions. Patient began having seizures on 07/25/2020 and was loaded with Keppra 1000 mg IV x1 and started Keppra 500 mg IV twice daily. Repeat MRI brain with and without contrast did not demonstrate acute infarction but did demonstrate abnormal increased T2 signal involving the right temporal lobe including hippocampus, right insula and portion of the right frontal lobe compatible with HSV 1 encephalitis. Patient continued to have seizures and increased Keppra to 1500 mg IV twice daily. Pursued transfer to [facility] and patient was to be transferred pending bed availability. Previous provider discussed transfer to [facility] with patient's spouse and and she initially agreed to transfer. However, patient developed recurrent seizure activity and continue to further decompensate high fevers, tachycardia, tachypnea and hypoxemia with worsening secretions and did not improve on brief BiPAP therapy, therefore decision was made to deescalate care and discontinue all unnecessary medical interventions and pursue palliative care only. 3. Acute aspiration event with hypoxemic respiratory failure, not present on admission. Active. -Patient had likely aspiration event and possible aspiration due to impaired swallow and excessive secretions on 07/25/2020. -Continue supplemental oxygen as necessary for comfort. -Continued Zosyn until decision was made to withdrawal all medical interventions and pursue palliative care only. 4. Acute rhabdomyolysis, present on admission. Resolved. -Patient had unwitnessed fall on a boat without obvious loss of consciousness or prolonged time down. -Initial creatinine kinase 6823 and trended down to normal. Troponin was borderline at 0.035 in setting of rhabdomyolysis. Chest x-ray of poor quality shows cardiomegaly with interstitial prominence, however, pro BNP is 428 and did not show any signs of fluid overload and rather appeared dry. -Continued aggressive IV fluid hydration until decision was made to withdrawal all medical interventions and pursue palliative care only. 5. Acute hyponatremia, secondary to dehydration, present on admission. Resolved. -Initial sodium 126. Sodium level trended up to normal 139 with IV fluid hydration. -Discontinued all unnecessary lab draws once decision was made to withdrawal all medical interventions and pursue palliative care only. 6. Acute hypokalemia, present on admission. Resolved. -Initial potassium 3.3. Received potassium chloride 40 mEq IV x1. Potassium level normalized. -Discontinued all unnecessary lab draws once decision was made to withdrawal all medical interventions and pursue palliative care only. 7. Bilateral conjunctivitis, present on admission. Resolved. -Continued polymyxin eye drops 4 times daily bilateral conjunctivitis resolved. 8. Diabetes mellitus type 2, insulin using, present on admission. Stable. -Hemoglobin A1c 7.1%. -Patient usually takes Tresiba 90 units daily at bedtime. Held Tresiba due to decompensation from HSV 1 encephalitis now comatose and NPO. -Continued blood glucose checks and medial-dose correctional scale insulin until decision was made to withdrawal all medical interventions and pursue palliative care only. 9. Hypertension, chronic, present on admission. Stable. -Continued losartan 50 mg daily until decision was made to withdrawal all medical interventions and pursue palliative care only. 10. Benign prostatic hypertrophy with urinary retention, chronic, present on admission. Stable. -Patient takes beta health for his prostate. He denies difficulty urinating though he has previously required catheter placement for obstruction. -Straight catheterization performed in the ED to obtain urinalysis which did not appear infected. Place Foote catheter for urinary retention and comfort. -Continued tamsulosin 0.4 mg daily until decision was made to withdrawal all medical interventions and pursue palliative care only. 11. Hepatic steatosis, chronic, present on admission. Stable. -Diffuse hepatic steatosis on CT abdomen and pelvis. Patient has mild transaminitis which resolved with IV fluid hydration. -Discontinued all unnecessary lab draws once decision was made to withdrawal medical intervention and pursue palliative care only. Code status: Patient states his desire to be DNR which is confirmed with the patient's at bedside whom he designates to be his surrogate decision maker. Patient's spouse and DPOA may decision to withdrawal medical interventions and pursue palliative care only due to continued decompensation and declined. VTE prophylaxis: Contraindicated Disposition: Patient appears to be actively dying and will likely in the next 24-48 hours. Quality VTE Deep Vein Thrombosis/Pulmonary Embolism Present on Admission: No
[2020-07-27] MEDS: ACETAMINOPHEN 650 MG SUPP PR (20:07)
[2020-07-27] MEDS: ACETAMINOPHEN 325 MG SUPP PR (22:00)
[2020-07-27] MEDS: KETOROLAC 15 MG/ML VIAL IV (22:00)
--- NOTE | 2020-07-27 22:08 | PC.NURSE ---
Addendum entered by Grace Dhillon R.N. 07/27/20 22:46: 2245- temp now 102.1 Medicated per orders family at bedside. Original Note: 1999- Temp elevated to 101.5 tylenol suppository given per order. 2099- Temp recheck now 101.9 patient packed in ice. Given morphine for comfort 2200- Patient temp now 103.9 Percy [employer] notified. Additional tylenol suppository given and Tordal 15mg IV given. Family at bedside. Will monitor
[2020-07-28] MEDS: levETIRAcetam 1,500 MG in SODIUM CHLORIDE 0.9% 100 ML 420 ML IV (00:05)
[2020-07-28] MEDS: MORPHINE 4 MG/ML INJ IV ×2 (01:08→05:38)
[2020-07-28] MEDS: LORazepam 2 MG/ML INJ IV ×2 (01:08→05:38)
[2020-07-28 04:43] VITALS: TEMP 36.6
[2020-07-28 06:04] VITALS: O2SAT 57
--- NOTE | 2020-07-28 06:07 | PC.NURSE ---
Addendum entered by Haydee Queen R.N. 07/28/20 06:40: Notified SAMANTA Toledo at 0639 of patient's condition change. No orders received. Addendum entered by Haydee Queen R.N. 07/28/20 06:36: Patient's spouse, Itzel, notified via telephone regarding patient's change in status. Patient currently having longer apnic periods. 02 sats read 35%, patient's heart rate also dropping into 80's (previously 110's). Itzel stated she would come back to [facility] now. Addendum entered by Haydee Queen R.N. 07/28/20 06:13: Patient's current temp 97.8 auxiliary. Patient remained afebrile but clammy throughout this RNs shift. Original Note: Patient requiring multiple doses of PRN Ativan and Morphine throughout shift due to labored work of breathing. Patient also had multiple episodes of loud moaning and coughing. Family remains at bedside throughout the night. Patient turned and repositioned every two hours throughout the shift. Around 0550 patient's 02 was checked due to change in color. Patient appears to be more cyanotic at this point. 02 sats read 57% on RA. Patient remains comfort measures only. Patient resting in bed, family left bedside to go home at 0610.
--- NOTE | 2020-07-28 07:43 | PC.NURSE ---
Addendum entered by Desiree Palacios R.N. 07/28/20 08:51: [facility] contacted, and children will be here to meet home to make arrangements. Original Note: Am shift Start of shift, bedside shift report Pt with agonal breathing and long periods of apnea. Family had already been called to update, and patient without pulse at 0710, second RN confirmed. Family arrived and updated. Dr Carrillo and marketing and development coordinator, Layla notified.
--- NOTE | 2020-07-28 08:45 | PM.DDS.1 ---
Discharge Summary History of Illness Narrative: Written by Roberto Carlos ENGLAND on 07/20/2020: Mr. Ottoniel Lewis is a 70-year-old male patient with a past medical history significant for insulin-dependent diabetes with neuropathy, hypertension, history of kidney stones and BPH presents to the ER with altered mental status, headache and fever. 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 The patient's symptoms began 1 week ago after being caught and rain storm for several hours after which the patient began experiencing shaking chills. The patient complained of headache and is otherwise typically stoic. He has had associated symptoms of increasing confusion which is describes activities like scrolling a cell phone screen but without a cell. Patient has had associated symptoms of body aches weakness, feeling tired having slept most of the day yesterday. Patient is diabetic and has had poor appetite and has been taking to see above but did not receive his dose today having had a low blood sugar in the 60s that was treated with oral nutrition. Patient has had no prior headaches or neurologic symptoms or seizures, no history trauma or injury, no complaints photo or phonophobia. He has not complained of neck or back pain but has had nausea without vomiting denies complaints of sinus or nasal congestion or sore throat. He has not complained of chest pain or palpitations, shortness of breath cough or wheezing. Denies complaints of abdominal pain, heartburn, diarrhea or constipation. He takes beta health for enlarged prostate and denies difficulty urinating. Upon arrival to the ER the patient has a temperature 103.3, heart rate of 85, blood pressure 137/63, respirations 22 saturating 95% on room air. A CT of the head is obtained which finds no intercranial pathology. A chest x-rays obtained finding cardiomyopathy with interstitial prominence. CT of the abdomen and pelvis finds hepatic steatosis, nonobstructing calculi of both kidneys without hydronephrosis, prostatomegaly. Twelve lead EKG is obtained finding a sinus rhythm with ventricular rate of 86, first-degree AV block with right bundle branch block, Q-waves in lead 2 and AVF indicative prior inferior NM, On laboratory analysis the patient has an elevated white blood cell count at 16.1 with 2700 monocytes, 8.8% lymphs and 11,900 neutrophils, hemoglobin of 14.7, hematocrit 42.2 and platelets 208. He is found to be hyponatremic 126 and hypokalemic at 3.3. His BUN is 26 and creatinine 0.87. His nonfasting glucose is 120 with an A1c 7.1.. His total bilirubin is 1.2 with an AST of 161 and ALT is 79. His lipase is 60 11 and LDH is 872. He has a D-dimer of 215. His initial lactic acid is 3.2 following fluids he has improved to 1.3. His procalcitonin is less than 0.05. His troponin is 0.035, total CK is 6823 with an MB of 38.3 for an index of 0.6, BNP is 428. TSH is 0.07 with free T4 of 1.37. An LP is obtained through interventional radiology: Opening pressures not provided, CSF is clear and colorless, wbc's are 216 with monos 90% and 10% polys, glucose is normal at 43 and total protein is elevated at 76. 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 In the ER the patient received Zosyn 3.375 g and Rocephin 2 g. Has received Tylenol 975 mg well as Toradol 15 mg. Sepsis bolus was ordered then canceled. The patient is admitted to the hospitalist service for altered mental status and possible bacterial meningitis. Hospital Course Date of Admission: 07/20/20 15:57 Date of : 07/28/20 Consults: 07/20/20 22:04 Consult to Discharge Planning Routine Comment: Consult to Physical Therapy Evaluate & Treat Comment: Meningitis, weakness Physician Instructions: Evaluate and Treat 07/20/20 22:11 Consult to Respiratory Therapy Evaluate & Treat Comment: Home CPAP may use own device. Physician Instructions: Evaluate and treat 07/21/20 09:07 Consult to Speech Therapy Evaluate & Treat Comment: patient pocketing food Physician Instructions: Evaluate and treat 07/21/20 09:08 Consult to Occupational Therapy Evaluate & Treat Comment: weakness, lack of coordination Physician Instructions: Evaluate and treat 07/22/20 23:01 Consult to Dietitian, Adult Routine Comment: Reason For Exam: decreased intake 07/23/20 11:04 Consult to Occupational Therapy Evaluate & Treat Comment: Physician Instructions: Evaluate and treat Consult to Physical Therapy Evaluate & Treat Comment: Physician Instructions: Evaluate and Treat 07/26/20 14:12 Consult to Dietitian, Adult Routine Comment: Reason For Exam: NG tube feeding recommendations Discharge provider: Bren Carrillo D.O. Discharge Diagnosis: Acute HSV 1 encephalitis, present on admission. Active. Acute aspiration event with possible aspiration pneumonia and hypoxemic respiratory failure, not present on admission. Active. Acute rhabdomyolysis, present on admission. Resolved. Acute hyponatremia, secondary to dehydration, present on admission. Resolved. Acute hypokalemia, present on admission. Resolved. Bilateral conjunctivitis, present on admission. Resolved. Diabetes mellitus type 2, insulin using, present on admission. Stable. Hypertension, chronic, present on admission. Stable. Benign prostatic hypertrophy with urinary retention, chronic, present on admission. Stable. Hepatic steatosis, chronic, present on admission. Stable. 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 Patient initially appeared to be improving, however ultimately developed worsening fevers and seizure activity. This evening family wished to deescalate his care and focus on comfort. 1. End of life care. -Patient's spouse and DPOA may decision to withdrawal medical interventions and pursue palliative care only due to continued decompensation and declined. -Continue Foote catheter for comfort. -Continue comfort care medications including: Acetaminophen 975 mg [place] every 6 hours for fever and mild pain, morphine 2 mg every 4 hours as needed for pain or discomfort, lorazepam 2 mg IV every 1 hour as needed for anxiety or agitation, ondansetron 4 mg every 8 hours as needed for nausea or vomiting, scopolamine patch every 72 hours and atropine drops 2 drops every 2 hours as needed for excessive secretions. -Patient at 7:10 a.m. on 07/28/2020. 2. Acute HSV 1 encephalitis, present on admission. Active. -Patient presented with progressive headache, high fevers, chills, nausea without vomiting, fatigue and confusion x3 days. -Infectious workup in ED was negative including: CT brain without contrast, chest x-ray, CT chest abdomen and pelvis with contrast, and urinalysis. COVID-19 negative x2. Respiratory PCR negative. ED physician attempted LP which was unsuccessful. Consulted Interventional Radiology performed fluoroscopy guided LP. -CSF PCR positive for HSV 1. CSF was consistent with viral etiology and demonstrated: Clear and colorless, WBC 216 (monos 90% and polys 10%), slightly elevated protein at 76, glucose normal 43. -CT brain without contrast did not demonstrate any acute intracranial abnormalities. -Initial MRI brain with and without contrast did not demonstrate any acute intracranial abnormalities with noted chronic microvascular ischemic changes present. -Received Zosyn 3.375 g x 1 and ceftriaxone 2 g IV x1 in ED. Continued ceftriaxone 2 g IV every 12 hours and vancomycin with dosing per pharmacist pending CSF analysis then discontinued. -Started and continued acyclovir 10 mg/kg with 1100 mg IV every 8 hours and aggressive IV fluid hydration until decision was made to withdrawal all medical interventions and pursue palliative care only. -Continued seizure precautions. Patient began having seizures on 07/25/2020 and was loaded with Keppra 1000 mg IV x1 and started Keppra 500 mg IV twice daily. Repeat MRI brain with and without contrast did not demonstrate acute infarction but did demonstrate abnormal increased T2 signal involving the right temporal lobe including hippocampus, right insula and portion of the right frontal lobe compatible with HSV 1 encephalitis. Patient continued to have seizures and increased Keppra to 1500 mg IV twice daily. Pursued transfer to [facility] and patient was to be transferred pending bed availability. Previous provider discussed transfer to [facility] with patient's spouse and and she initially agreed to transfer. However, patient developed recurrent seizure activity and continue to further decompensate high fevers, tachycardia, tachypnea and hypoxemia with worsening secretions and did not improve on brief BiPAP therapy, therefore decision was made to deescalate care and discontinue all unnecessary medical interventions and pursue palliative care only. 3. Acute aspiration event with hypoxemic respiratory failure, not present on admission. Active. -Patient had likely aspiration event and possible aspiration due to impaired swallow and excessive secretions on 07/25/2020. -Continued supplemental oxygen as necessary for comfort. -Continued Zosyn until decision was made to withdrawal all medical interventions and pursue palliative care only. 4. Acute rhabdomyolysis, present on admission. Resolved. -Patient had unwitnessed fall on a boat without obvious loss of consciousness or prolonged time down. -Initial creatinine kinase 6823 and trended down to normal. Troponin was borderline at 0.035 in setting of rhabdomyolysis. Chest x-ray of poor quality shows cardiomegaly with interstitial prominence, however, pro BNP is 428 and did not show any signs of fluid overload and rather appeared dry. -Continued aggressive IV fluid hydration until decision was made to withdrawal all medical interventions and pursue palliative care only. 5. Acute hyponatremia, secondary to dehydration, present on admission. Resolved. -Initial sodium 126. Sodium level trended up to normal 139 with IV fluid hydration. -Discontinued all unnecessary lab draws once decision was made to withdrawal all medical interventions and pursue palliative care only. 6. Acute hypokalemia, present on admission. Resolved. -Initial potassium 3.3. Received potassium chloride 40 mEq IV x1. Potassium level normalized. -Discontinued all unnecessary lab draws once decision was made to withdrawal all medical interventions and pursue palliative care only. 7. Bilateral conjunctivitis, present on admission. Resolved. -Continued polymyxin eye drops 4 times daily bilateral conjunctivitis resolved. 8. Diabetes mellitus type 2, insulin using, present on admission. Stable. -Hemoglobin A1c 7.1%. -Patient usually takes Tresiba 90 units daily at bedtime. Held Tresiba due to decompensation from HSV 1 encephalitis now comatose and NPO. -Continued blood glucose checks and medial-dose correctional scale insulin until decision was made to withdrawal all medical interventions and pursue palliative care only. 9. Hypertension, chronic, present on admission. Stable. -Continued losartan 50 mg daily until decision was made to withdrawal all medical interventions and pursue palliative care only. 10. Benign prostatic hypertrophy with urinary retention, chronic, present on admission. Stable. -Patient takes beta health for his prostate. He denies difficulty urinating though he has previously required catheter placement for obstruction. -Straight catheterization performed in the ED to obtain urinalysis which did not appear infected. Place Foote catheter for urinary retention and comfort. -Continued tamsulosin 0.4 mg daily until decision was made to withdrawal all medical interventions and pursue palliative care only. 11. Hepatic steatosis, chronic, present on admission. Stable. -Diffuse hepatic steatosis on CT abdomen and pelvis. Patient has mild transaminitis which resolved with IV fluid hydration. -Discontinued all unnecessary lab draws once decision was made to withdrawal medical intervention and pursue palliative care only. Objective Labs Result Diagrams: 07/26/20 04:58 07/26/20 04:58
== END 2020-07-28 09:50 | disposition expired | DRG 97 ==
LOC: ED 14:11 → AC 15:59 → ICU 07-28 16:45
PROVIDERS: Internal Medicine; Nurse Practitioner Adult Health; Admitting Provider Internal Medicine; Emergency Provider Emergency Medicine; Referring Provider Emergency Medicine; Visit Provider Internal Medicine
DX: B10.09 Other human herpesvirus encephalitis (principal); J69.0 Pneumonitis due to inhalation of food and vomit; R40.2344 Coma scale, best motor response, flexion withdrawal, 24 hours or more after hospital admission; R40.2114 Coma scale, eyes open, never, 24 hours or more after hospital admission; R40.2224 Coma scale, best verbal response, incomprehensible words, 24 hours or more after hospital admission; J96.01 Acute respiratory failure with hypoxia; E87.1 Hypo-osmolality and hyponatremia; M62.82 Rhabdomyolysis; E11.40 Type 2 diabetes mellitus with diabetic neuropathy, unspecified; R56.9 Unspecified convulsions; E87.6 Hypokalemia; E86.0 Dehydration; R40.2362 Coma scale, best motor response, obeys commands, at arrival to emergency department; R40.2132 Coma scale, eyes open, to sound, at arrival to emergency department; R40.2242 Coma scale, best verbal response, confused conversation, at arrival to emergency department; H10.9 Unspecified conjunctivitis; N40.0 Benign prostatic hyperplasia without lower urinary tract symptoms; R33.9 Retention of urine, unspecified; K76.0 Fatty (change of) liver, not elsewhere classified; Z79.4 Long term (current) use of insulin; W19.XXXA Unspecified fall, initial encounter; Y92.814 Boat as the place of occurrence of the external cause; Z11.59 Encounter for screening for other viral diseases; Z66 Do not resuscitate
CPT/HCPCS: 36415; 36592; 51798; 62270; 70450; 70551; 70553; 71045; 74177; 76000; 80048; 80053; 80076; 81001; 82550; 82553; 82728; 82945; 82962; 83036; 83605; 83615; 83690; 83735; 83880; 84145; 84157; 84439; 84443; 84484; 85025; 85379; 86140; 87040; 87070; 87077; 87086; 87205; 87389; 87502; 87633; 87635; 87798; 89051; 92610; 93005; 93010; 94660; 94760; 94762; 94799; 96361; 96365; 96375; 97163; 97164; 99285; C9113; J0610; J0696; J1642; J1644; J1885; J1953; J2060; J2270; J2543; J3480; Q9967